=== PATIENT | female | born 1970 | race African-American/Black ===

== ENCOUNTER 2020-11-15 18:13 | Inpatient (IN) | payer MEDICARE, OTHER ==
[2020-11-15] MEDS ORDERED: ACETAMINOPHEN TAB 500 MG TAB PO STA (18:30)
--- NOTE | 2020-11-15 18:48 | ED ---
General Adult HPI - General Chief complaint: Shortness of Breath Stated complaint: RENEE Time Seen by Provider: 11/15/20 18:18 Source: RN/MD Mode of arrival: EMS Limitations: no limitations - History of Present Illness Initial comments: Baylee 50-year-old female with history of anoxic brain injury, status post trach and PEG who presents to the ER today via ambulance from half-way for evaluation of increased work of breathing and fever. - Related Data Home Medications Medication Instructions Recorded Confirmed Acetaminophen [Tylenol] 650 mg PEG/G-TUBE Q6H PRN 11/15/20 11/15/20 Bacitracin Ointment 500 Unit/Gm 1 applic TOPICAL HS 11/15/20 11/15/20 Docusate [Colace] 100 mg PEG/G-TUBE BID 11/15/20 11/15/20 Furosemide [Lasix] 20 mg PEG/G-TUBE DAILY 11/15/20 11/15/20 Heparin Sodium,Porcine [Heparin 5,000 unit SQ TID@0500,1300,2100 11/15/20 11/15/20 Sodium] Ipratropium-Albuterol Nebulize 3 ml INHALATION RT-Q6H 11/15/20 11/15/20 [Duoneb 0.5 mg-3 mg/3 ml Soln] Levofloxacin [Levaquin] 500 mg PEG/G-TUBE DAILY 11/15/20 11/15/20 Pro-Stat 15 ml PEG/G-TUBE BID 11/15/20 11/15/20 RX: Carvedilol [Coreg] 12.5 mg PEG/G-TUBE BID 11/15/20 11/15/20 RX: Famotidine 20 mg PEG/G-TUBE BID 11/15/20 11/15/20 RX: PHENobarbitaL [PHENobarbital] 64.8 mg PEG/G-TUBE 11/15/20 11/15/20 TID@0500,1300,2100 RX: bisacodyL [Bisacodyl] 10 mg RECTAL DAILY PRN 11/15/20 11/15/20 Refresh Plus Solution 0.5% 2 drop BOTH EYES TID@0500,1300,2100 11/15/20 11/15/20 Sennosides [Senna] 17.2 mg PEG/G-TUBE HS 11/15/20 11/15/20 Topiramate [Topamax] 100 mg PEG/G-TUBE BID 11/15/20 11/15/20 amLODIPine [Norvasc] 10 mg PEG/G-TUBE DAILY 11/15/20 11/15/20 clonazePAM [KlonoPIN] 1 mg PEG/G-TUBE TID@0500,1300,2100 11/15/20 11/15/20 hydrALAZINE HCL [Apresoline] 50 mg PEG/G-TUBE BID 11/15/20 11/15/20 levETIRAcetam [levETIRAcetam Oral 1,500 mg PEG/G-TUBE BID 11/15/20 11/15/20 Soln] Allergies Allergy/AdvReac Type Severity Reaction Status Date / Time No Known Allergies Allergy Verified 11/15/20 18:46 Review of Systems ROS Statement: Those systems with pertinent positive or pertinent negative responses have been documented in the HPI. ROS Other: All systems not noted in ROS Statement are negative. Past Medical History Past Medical History: Heart Failure, Hypertension Additional Past Medical History / Comment(s): Cardiac arrest, Anoxic brain injury, History of Any Multi-Drug Resistant Organisms: None Reported Additional Past Surgical History / Comment(s): trach Past Psychological History: No Psychological Hx Reported Smoking Status: Unknown if ever smoked Past Alcohol Use History: None Reported Past Drug Use History: None Reported General Exam - General Exam Comments Initial Comments: Physical Exam GENERAL: debilitated, bed bound, unresponsive at baseline HENT: No acute trauma PULMONARY: Tachypnea, thick secretions of trach CARDIOVASCULAR: Tachycardic ABDOMEN: PEG tube in place SKIN: Warm : Deferred NEUROLOGIC: Unresponsive, at baseline per EMS MUSCULOSKELETAL: Generalized atrophy PSYCHIATRIC: Unable to assess secondary to mental status Limitations: no limitations Course Vital Signs 11/15/20 11/15/20 11/15/20 18:16 20:27 20:45 Temperature 101.2 F H 98.9 F Pulse Rate 94 99 Respiratory 32 H 22 Rate Blood Pressure 154/104 167/110 O2 Sat by Pulse 98 96 Oximetry 11/15/20 22:00 Temperature 98.8 F Pulse Rate 93 Respiratory 23 Rate Blood Pressure 169/99 O2 Sat by Pulse 100 Oximetry Medical Decision Making - Medical Decision Making Patient was seen and evaluated history was obtained from EMS Patient is febrile tachycardic with increased secretions from the trach Septic workup was initiated Excedrin respiratory therapy at bedside for deep suctioning Workup is relatively unremarkable patient has influenza and COVID negative chest x-ray shows no signs of pneumonia, patient's fever broke prior to Tylenol administration Suspect the patient was hyperthermic secondary to work of breathing due to mucus plugging and has improved after deep suctioning however they think the patient may require further deep suctioning and possible brought therefore will be admitted for further evaluation Patient care was discussed with Dr. Acharya who accepts the admission - Lab Data Result diagrams: 11/15/20 18:50 11/15/20 18:50 Lab Results 11/15/20 11/15/20 11/15/20 Range/Units 18:50 18:50 18:50 WBC 10.2 (3.8-10.6) k/uL RBC 4.12 (3.80-5.40) m/uL Hgb 11.1 L (11.4-16.0) gm/dL Hct 33.4 L (34.0-46.0) % MCV 81.2 (80.0-100.0) fL MCH 26.9 (25.0-35.0) pg MCHC 33.1 (31.0-37.0) g/dL RDW 15.9 H (11.5-15.5) % Plt Count 253 (150-450) k/uL MPV 7.7 Neutrophils % 71 % Lymphocytes % 17 % Monocytes % 8 % Eosinophils % 2 % Basophils % 0 % Neutrophils # 7.3 (1.3-7.7) k/uL Lymphocytes # 1.7 (1.0-4.8) k/uL Monocytes # 0.8 (0-1.0) k/uL Eosinophils # 0.3 (0-0.7) k/uL Basophils # 0.0 (0-0.2) k/uL PT 10.3 (9.0-12.0) sec INR 1.0 (<1.2) APTT 22.0 (22.0-30.0) sec Sodium (137-145) mmol/L Potassium (3.5-5.1) mmol/L Chloride (98-107) mmol/L Carbon Dioxide (22-30) mmol/L Anion Gap mmol/L BUN (7-17) mg/dL Creatinine (0.52-1.04) mg/dL Est GFR (CKD-EPI)AfAm (>60 ml/min/1.73 sqM) Est GFR (CKD-EPI)NonAf (>60 ml/min/1.73 sqM) Glucose (74-99) mg/dL Plasma Lactic Acid Brenden (0.7-2.0) mmol/L Calcium (8.4-10.2) mg/dL Total Bilirubin (0.2-1.3) mg/dL AST (14-36) U/L ALT (4-34) U/L Alkaline Phosphatase (38-126) U/L Total Protein (6.3-8.2) g/dL Albumin (3.5-5.0) g/dL Urine Color Yellow Urine Appearance Clear (Clear) Urine pH 6.0 (5.0-8.0) Ur Specific [place] 1.031 (1.001-1.035) Urine Protein Trace H (Negative) Urine Glucose (UA) Negative (Negative) Urine Ketones Negative (Negative) Urine Blood Negative (Negative) Urine Nitrite Negative (Negative) Urine Bilirubin Negative (Negative) Urine Urobilinogen 2.0 (<2.0) mg/dL Ur Leukocyte Esterase Negative (Negative) Coronavirus (PCR) (Not Detectd) Influenza Type A RNA (Not Detectd) Influenza Type B (PCR) (Not Detectd) 11/15/20 11/15/20 11/15/20 Range/Units 18:50 18:50 18:50 WBC (3.8-10.6) k/uL RBC (3.80-5.40) m/uL Hgb (11.4-16.0) gm/dL Hct (34.0-46.0) % MCV (80.0-100.0) fL MCH (25.0-35.0) pg MCHC (31.0-37.0) g/dL RDW (11.5-15.5) % Plt Count (150-450) k/uL MPV Neutrophils % % Lymphocytes % % Monocytes % % Eosinophils % % Basophils % % Neutrophils # (1.3-7.7) k/uL Lymphocytes # (1.0-4.8) k/uL Monocytes # (0-1.0) k/uL Eosinophils # (0-0.7) k/uL Basophils # (0-0.2) k/uL PT (9.0-12.0) sec INR (<1.2) APTT (22.0-30.0) sec Sodium 136 L (137-145) mmol/L Potassium 3.8 (3.5-5.1) mmol/L Chloride 103 (98-107) mmol/L Carbon Dioxide 23 (22-30) mmol/L Anion Gap 10 mmol/L BUN 21 H (7-17) mg/dL Creatinine 0.65 (0.52-1.04) mg/dL Est GFR (CKD-EPI)AfAm >90 (>60 ml/min/1.73 sqM) Est GFR (CKD-EPI)NonAf >90 (>60 ml/min/1.73 sqM) Glucose 109 H (74-99) mg/dL Plasma Lactic Acid Brenden 0.8 (0.7-2.0) mmol/L Calcium 9.2 (8.4-10.2) mg/dL Total Bilirubin 0.3 (0.2-1.3) mg/dL AST 44 H (14-36) U/L ALT 62 H (4-34) U/L Alkaline Phosphatase 124 (38-126) U/L Total Protein 6.7 (6.3-8.2) g/dL Albumin 3.5 (3.5-5.0) g/dL Urine Color Urine Appearance (Clear) Urine pH (5.0-8.0) Ur Specific [place] (1.001-1.035) Urine Protein (Negative) Urine Glucose (UA) (Negative) Urine Ketones (Negative) Urine Blood (Negative) Urine Nitrite (Negative) Urine Bilirubin (Negative) Urine Urobilinogen (<2.0) mg/dL Ur Leukocyte Esterase (Negative) Coronavirus (PCR) Not Detected (Not Detectd) Influenza Type A RNA (Not Detectd) Influenza Type B (PCR) (Not Detectd) 11/15/20 Range/Units 20:58 WBC (3.8-10.6) k/uL RBC (3.80-5.40) m/uL Hgb (11.4-16.0) gm/dL Hct (34.0-46.0) % MCV (80.0-100.0) fL MCH (25.0-35.0) pg MCHC (31.0-37.0) g/dL RDW (11.5-15.5) % Plt Count (150-450) k/uL MPV Neutrophils % % Lymphocytes % % Monocytes % % Eosinophils % % Basophils % % Neutrophils # (1.3-7.7) k/uL Lymphocytes # (1.0-4.8) k/uL Monocytes # (0-1.0) k/uL Eosinophils # (0-0.7) k/uL Basophils # (0-0.2) k/uL PT (9.0-12.0) sec INR (<1.2) APTT (22.0-30.0) sec Sodium (137-145) mmol/L Potassium (3.5-5.1) mmol/L Chloride (98-107) mmol/L Carbon Dioxide (22-30) mmol/L Anion Gap mmol/L BUN (7-17) mg/dL Creatinine (0.52-1.04) mg/dL Est GFR (CKD-EPI)AfAm (>60 ml/min/1.73 sqM) Est GFR (CKD-EPI)NonAf (>60 ml/min/1.73 sqM) Glucose (74-99) mg/dL Plasma Lactic Acid Brenden (0.7-2.0) mmol/L Calcium (8.4-10.2) mg/dL Total Bilirubin (0.2-1.3) mg/dL AST (14-36) U/L ALT (4-34) U/L Alkaline Phosphatase (38-126) U/L Total Protein (6.3-8.2) g/dL Albumin (3.5-5.0) g/dL Urine Color Urine Appearance (Clear) Urine pH (5.0-8.0) Ur Specific [place] (1.001-1.035) Urine Protein (Negative) Urine Glucose (UA) (Negative) Urine Ketones (Negative) Urine Blood (Negative) Urine Nitrite (Negative) Urine Bilirubin (Negative) Urine Urobilinogen (<2.0) mg/dL Ur Leukocyte Esterase (Negative) Coronavirus (PCR) (Not Detectd) Influenza Type A RNA Not Detected (Not Detectd) Influenza Type B (PCR) Not Detected (Not Detectd) Disposition Clinical Impression: Acute airway obstruction Disposition: ADMITTED IP TO THIS HOSP
[2020-11-15 19:16] LABS: Basophils % (A) 0 %; Eosinophils # (A) 0.3 k/uL (0-0.7); Eosinophils % (A) 2 %; HCT 33.4 % (34.0-46.0); HGB 11.1 gm/dL (11.4-16.0); Lymphocytes # (A) 1.7 k/uL (1.0-4.8); Lymphocytes % (A) 17 %; MCH 26.9 pg (25.0-35.0); MCHC 33.1 g/dL (31.0-37.0); MCV 81.2 fL (80.0-100.0); Mean Platelet Volume 7.7; Monocytes # (A) 0.8 k/uL (0-1.0); Monocytes % (A) 8 %; Neutrophils # (A) 7.3 k/uL (1.3-7.7); Neutrophils % (A) 71 %; Platelet Count 253 k/uL (150-450); RBC 4.12 m/uL (3.80-5.40); RDW 15.9 % (11.5-15.5); WBC 10.2 k/uL (3.8-10.6)
[2020-11-15 19:18] LABS: Appearance,Urine Clear (Clear); Bilirubin,Urine Negative (Negative); Color,Urine Yellow; Glucose,Urine (UA) Negative (Negative); Ketones,Urine Negative (Negative); Protein,Urine Trace (Negative); Specific Gravity,Urine 1.031 (1.001-1.035)
[2020-11-15 19:19] LABS: Blood,Urine Negative (Negative); Leukocyte Esterase,Urine Negative (Negative); Nitrite,Urine Negative (Negative)
[2020-11-15 19:27] LABS: ALT 62 U/L (4-34); AST 44 U/L (14-36); African American GFR (CKD) >90 (>60 ml/min/1.73 sqM); Albumin 3.5 g/dL (3.5-5.0); Alkaline Phosphatase 124 U/L (38-126); Anion Gap 10 mmol/L; Blood Urea Nitrogen 21 mg/dL (7-17); Calcium 9.2 mg/dL (8.4-10.2); Carbon Dioxide 23 mmol/L (22-30); Chloride 103 mmol/L (98-107); Glucose 109 mg/dL (74-99); Non-African American GFR(CKD) >90 (>60 ml/min/1.73 sqM); Potassium 3.8 mmol/L (3.5-5.1); Sodium 136 mmol/L (137-145); Total Bilirubin 0.3 mg/dL (0.2-1.3); Total Protein 6.7 g/dL (6.3-8.2)
--- NOTE | 2020-11-15 19:28 | XR ---
EXAMINATION TYPE: XR chest 1V portable DATE OF EXAM: 11/15/2020 COMPARISON: NONE HISTORY: Fever TECHNIQUE: Single view FINDINGS: Heart and mediastinum are normal. Lungs are clear of infiltrate. There is no pleural effusi on. There is tracheostomy tube. There are chest leads. IMPRESSION: No active cardiopulmonary disease. Normal heart.
[2020-11-15 19:42] LABS: Prothrombin Time 10.3 sec (9.0-12.0)
[2020-11-15] MEDS: SODIUM CHLORIDE 0.9% 500 ML 500 ML IV SCH ×2 (20:00→20:41)
[2020-11-15] MEDS ORDERED: NALOXONE 0.4 MG/ML 1 ML VIAL IV PRN (22:37)
[2020-11-15] MEDS ORDERED: ACETAMINOPHEN TAB 325 MG TAB PO PRN (23:36)
[2020-11-16] MEDS: SODIUM CHLORIDE 0.9% 1,000 ML IV SCH ×2 (00:08→12:09)
[2020-11-16] MEDS ORDERED: bisacodyL 10 MG SUPP RECTAL PRN (06:20)
[2020-11-16] MEDS: IPRATROPIUM-ALBUTEROL 3 ML NEB INHALATION SCH ×3 (08:24→19:15)
[2020-11-16] MEDS ORDERED: LEVOFLOXACIN 500 MG TAB PEG/G-TUBE SCH (09:00)
[2020-11-16] MEDS ORDERED: PROTEIN SUPPLEMENT PEG/G-TUBE SCH (09:00)
[2020-11-16] MEDS: TOPIRAMATE 100 MG TAB PEG/G-TUBE SCH ×2 (09:08→20:44)
[2020-11-16] MEDS: FUROSEMIDE 20 MG TAB PEG/G-TUBE SCH (09:08)
[2020-11-16] MEDS: FAMOTIDINE 20 MG TAB PEG/G-TUBE SCH ×2 (09:08→20:44)
[2020-11-16] MEDS: carvediloL 12.5 MG TAB PEG/G-TUBE SCH ×2 (09:08→16:11)
[2020-11-16] MEDS: levETIRAcetam ORAL SOLN 500 MG/5 ML CUP PEG/G-TUBE SCH ×2 (09:08→20:44)
[2020-11-16] MEDS: hydrALAZINE HCL 50 MG TAB PEG/G-TUBE SCH ×2 (09:08→20:44)
[2020-11-16] MEDS: amLODIPine 10 MG TAB PEG/G-TUBE SCH (09:08)
[2020-11-16] MEDS ORDERED: LORazepam 2 MG/ML INJ IV STA ×2 (10:45→14:25)
[2020-11-16] MEDS ORDERED: VANCOMYCIN IV PER PHARMACY 1 EACH MISC MISCELLANE PRN (10:50)
[2020-11-16 11:58] LABS: Glucose,Whole Blood 106 mg/dL (75-99)
[2020-11-16] MEDS: VANCOMYCIN 1,750 MG in SODIUM CHLORIDE 0.9% 500 ML 500 ML IVPB SCH ×2 (12:01→23:44)
[2020-11-16] MEDS: HEPARIN SODIUM,PORCINE 5,000 UNIT/ML 1 ML VIAL SQ SCH ×2 (13:55→20:44)
[2020-11-16] MEDS: clonazePAM 1 MG TAB PEG/G-TUBE SCH ×2 (13:55→20:44)
[2020-11-16] MEDS: ARTIFICIAL TEARS-HYPROMELLOSE DROPS 15 ML BTL BOTH EYES SCH ×2 (13:56→20:43)
[2020-11-16] MEDS ORDERED: PHENYTOIN SODIUM INJ 1,000 MG in SODIUM CHLORIDE 0.9% 100 ML IVPB STA (15:07)
[2020-11-16 16:05] LABS: Appearance,Urine Cloudy (Clear); Bacteria,Urine Rare /hpf; Bilirubin,Urine Negative (Negative); Blood,Urine Small (Negative); Color,Urine Yellow; Glucose,Urine (UA) Negative (Negative); Ketones,Urine Negative (Negative); Leukocyte Esterase,Urine Moderate (Negative); Mucus,Urine Occasional /hpf; Nitrite,Urine Negative (Negative); Protein,Urine 1+ (Negative); RBC,Urine 173 /hpf (0-5); Specific Gravity,Urine 1.033 (1.001-1.035); Squamous Epithelial Cell,Urine <1 /hpf (0-4); WBC,Urine 47 /hpf (0-5)
--- NOTE | 2020-11-16 16:05 | P.CNPUL ---
History of Present Illness Consult date: 11/16/20 Requesting physician: Flavio Acharya Reason for consult: other (Excessive tracheal secretions from tracheostomy.) Chief complaint: Shortness of breath and fever. History of present illness: This is a 50-year-old female, -Mexican female, presented to the emergency room yesterday from [facility]. Patient was brought in mostly because of increased shortness of breath, fever, and excessive tracheal secretions noted from her tracheostomy. Chest x-ray showed no evidence of pneumonia, patient had history of multiple types of infections including MRSA infections, and I was asked to see her on consultation. Apparently the patient had history of cardiac arrest back on September 29 2020, and she presented at the time to [facility] unresponsive, CPR was initiated, received multiple rounds of CPR and 2 doses of epinephrine. Patient eventually developed severe anoxic brain injury. Patient was treated with the hypothermia protocol. And she was on mechanical ventilation for quite some time. Patient was eventually a failure to wean, and underwent tracheostomy and PEG tube placement. Eventually she was transferred to [facility] on multiple medications including seizure medications, yesterday, the patient was noted to have significant secretions from her tracheostomy, and she was constantly coughing and requiring suctioning, she was also noted to have low-grade fever, chest x-ray showed no evidence of infiltrate. Patient was admitted and this consult was initiated. No information could be obtained from the patient and no family members around. Information was obtained from records from the [facility] facility where the patient was Review of Systems ROS unobtainable: due to mental status Past Medical History Past Medical History: Heart Failure, Hypertension Additional Past Medical History / Comment(s): Cardiac arrest, Anoxic brain injury, History of Any Multi-Drug Resistant Organisms: None Reported Additional Past Surgical History / Comment(s): trach Past Anesthesia/Blood Transfusion Reactions: No Reported Reaction Past Psychological History: No Psychological Hx Reported Smoking Status: Unknown if ever smoked Past Alcohol Use History: None Reported Past Drug Use History: None Reported Medications and Allergies Home Medications Medication Instructions Recorded Confirmed Type Acetaminophen [Tylenol] 650 mg PEG/G-TUBE Q6H PRN 11/15/20 11/15/20 History Bacitracin Ointment 500 Unit/Gm 1 applic TOPICAL HS 11/15/20 11/15/20 History Carvedilol [Coreg] 12.5 mg PEG/G-TUBE BID 11/15/20 11/15/20 History Docusate [Colace] 100 mg PEG/G-TUBE BID 11/15/20 11/15/20 History Famotidine 20 mg PEG/G-TUBE BID 11/15/20 11/15/20 History Furosemide [Lasix] 20 mg PEG/G-TUBE DAILY 11/15/20 11/15/20 History Heparin Sodium,Porcine [Heparin 5,000 unit SQ TID@0500,1300,2100 11/15/20 11/15/20 History Sodium] Ipratropium-Albuterol Nebulize 3 ml INHALATION RT-Q6H 11/15/20 11/15/20 History [Duoneb 0.5 mg-3 mg/3 ml Soln] Levofloxacin [Levaquin] 500 mg PEG/G-TUBE DAILY 11/15/20 11/15/20 History PHENobarbitaL [PHENobarbital] 64.8 mg PEG/G-TUBE 11/15/20 11/15/20 History TID@0500,1300,2100 Pro-Stat 15 ml PEG/G-TUBE BID 11/15/20 11/15/20 History Refresh Plus Solution 0.5% 2 drop BOTH EYES TID@0500,1300,2100 11/15/20 11/15/20 History Sennosides [Senna] 17.2 mg PEG/G-TUBE HS 11/15/20 11/15/20 History Topiramate [Topamax] 100 mg PEG/G-TUBE BID 11/15/20 11/15/20 History amLODIPine [Norvasc] 10 mg PEG/G-TUBE DAILY 11/15/20 11/15/20 History bisacodyL [Bisacodyl] 10 mg RECTAL DAILY PRN 11/15/20 11/15/20 History clonazePAM [KlonoPIN] 1 mg PEG/G-TUBE TID@0500,1300,2100 11/15/20 11/15/20 History hydrALAZINE HCL [Apresoline] 50 mg PEG/G-TUBE BID 11/15/20 11/15/20 History levETIRAcetam [levETIRAcetam Oral 1,500 mg PEG/G-TUBE BID 11/15/20 11/15/20 History Soln] Allergies Allergy/AdvReac Type Severity Reaction Status Date / Time No Known Allergies Allergy Verified 11/15/20 18:46 Physical Exam Vitals: Vital Signs Temp Pulse Pulse Resp BP BP Pulse Ox 11/16/20 14:00 98.9 F 94 20 140/85 100 11/16/20 12:22 110 H 11/16/20 12:05 108 H 11/16/20 08:37 113 H 11/16/20 08:25 110 H 100 11/16/20 08:00 99.9 F H 109 H 22 141/83 100 11/15/20 23:35 99.7 F H 101 H 143/68 100 11/15/20 22:00 98.8 F 93 23 169/99 100 11/15/20 20:45 98.9 F 11/15/20 20:27 99 22 167/110 96 11/15/20 18:16 101.2 F H 94 32 H 154/104 98 Intake and Output 11/16/20 11/16/20 11/16/20 06:59 14:59 22:59 Output Total 400 Balance -400 Output: Urine 400 Other: Voiding Method Indwelling Catheter Weight Physical Exam: Revealed a 50-year-old -Mexican female, unresponsive to any stimuli, on T piece FiO2 at 40%, Head: Atraumatic, normocephalic. HEENT:[Neck is supple.] [No neck masses.] [No thyromegaly.] [No JVD.] Tracheostomy seems to be intact. Chest: [Symmetrical chest expansion, crackles and rhonchi noted bilaterally. Cardiac Exam: [Normal S1 and S2, no S3 gallop, no murmur.] Abdomen: [Obese, Soft, nontender, no megaly, no rebound, no guarding, normal bowel sounds. PEG tube is noted.] Extremities: [No clubbing, trace of bipedal edema, no cyanosis.] Minutes pulses bilaterally. Neurological Exam: Patient is unresponsive to any stimuli. Noted to have intermittent jerks, felt to be either myoclonic jerks or seizures, responded to Ativan 1 mg IV push 1. Psychiatric: Could not be assessed. Results - Laboratory Findings CBC and BMP: 11/15/20 18:50 11/15/20 18:50 PT/INR, D-dimer PT 10.3 sec (9.0-12.0) 11/15/20 18:50 INR 1.0 (<1.2) 11/15/20 18:50 Abnormal lab findings: Abnormal Labs 11/15/20 11/15/20 11/15/20 18:50 18:50 18:50 Hgb 11.1 L Hct 33.4 L RDW 15.9 H Sodium 136 L BUN 21 H Glucose 109 H POC Glucose (mg/dL) AST 44 H ALT 62 H Urine Protein Trace H 11/16/20 11:56 Hgb Hct RDW Sodium BUN Glucose POC Glucose (mg/dL) 106 H AST ALT Urine Protein - Diagnostic Findings Chest x-ray: image reviewed (No evidence of pneumonia or active cardiopulmonary disease noted.) Assessment and Plan Assessment: Impression: Acute tracheobronchitis, doubt pneumonia History of severe anoxic brain injury secondary to cardiac arrest back on September 292020. Seizure disorder secondary to anoxic brain injury. Patient is maintained on Keppra. Possible myoclonic jerks or seizure activity, hence I recommended neurologic evaluation on this patient. In the meantime Ativan was given 1 patient is also maintained on lorazepam, and she is on Keppra. History of cardiac arrest Benign essential hypertension. History of PEG tube placement for nutritional support. Recommendation: Continue present supportive care measures. Continue tracheostomy care. Empiric antibiotics, will utilize vancomycin and Levaquin empirically for now until sputum cultures are available. Continue bronchodilators. Continue nutritional support via PEG. Continue GI and DVT prophylaxis. Neurology to see in consultation. Infectious disease to see her on consultation specially with her history of MRSA infection and possible pneumonia. Prognosis is extremely poor and guarded. We'll continue to follow. Time with Patient: Greater than 30
--- NOTE | 2020-11-16 19:00 | P.HPIM ---
History of Present Illness H&P Date: 11/16/20 Chief Complaint: Fever History of presenting complaint: This is a 50-year-old patient, who is a resident of [facility] being followed by Dr. Packer. Patient herself is nonverbal. History from the transfer notes and per the nurses obtained. patient had a cardiac arrest and was transferred to [facility]. From there she was [facility] and from there she was transferred to [facility]. Patient has a tracheostomy tube and a PEG tube. Chronic stable medical conditions include anoxic brain injury, hypertension, seizure disorder, GERD. History of MRSA. Maybe at her baseline she opens her eyes. EMS was called out as patient was noted to have a fever. Transferred to the hospital. Patient normally has a trach: Collar at 21%. Patient also noted to have some jerking movements. More so off the abdomen. Some around the mouth. Review of systems: Patient is not verbal and skin without pain review of systems Past medical history to include: Anoxic brain injury, hypertension, seizure disorder, GERD, MRSA infection, PEG tube for feeding, tracheostomy tube Social history: . Nonverbal. Currently at [facility] on. Tracheostomy tube PEG tube. Family history: Patient cannot tell Physical examination: VITAL SIGNS: 101.2, 94, 32, 1 54 x 1 04, 98% room air GENERAL: BMI 33.5, laying in bed. EYES: Pupils equal. Conjunctiva normal. HEENT: External appearance of nose and ears normal, oral cavity. Dry. NECK: JVD not raised; tracheostomy in place with some secretions. HEART: First and second heart sounds are normal; no edema. LUNGS: Respiratory rate increased, decreased breath sounds . ABDOMEN: Soft, nontender, liver spleen not palpable, no masses palpable. PSYCH: Unable to assessl. NEUROLOGICAL: [Cranial nerves grossly intact; no facial asymmetry, some response to pain LYMPHATICS: No lymph nodes palpable in the axilla and neck INVESTIGATIONS, reviewed in the clinical context: WBC 10.2 hemoglobin 11.1 platelets 253 potassium 3.8 creatinine 0.65 UA positive for leukoesterase, WBC Coronavirus, influenza type A, influenza type B: All not detected EKG tracing personally reviewed by me-no sinus rhythm Chest x-ray film personally reviewed by me-tracheostomy tube. No recent infiltrates Assessment and plan: -This is a patient presents with a septic picture. X-rays clear. Has a positive urine. Also possible tracheobronchitis. -Acute tracheal bronchitis. Placed on Levaquin -Acute UTI with cystitis, and Levaquin -Anoxic brain injury, chronic follow clinically -Essential hypertension continue with amlodipine, Coreg, hydralazine -Seizure disorder continue with Keppra, Topamax, phenobarbital. Patient with having some jerking movements. Consult neurology for their opinion. -Chronic tracheostomy and PEG tube 2 views for feeding. Continue with Levaquin. IV fluids. Other medications resumed. PEG tube feeding to be resumed. Prognosis guarded Past Medical History Past Medical History: Heart Failure, Hypertension Additional Past Medical History / Comment(s): Cardiac arrest, Anoxic brain injury, History of Any Multi-Drug Resistant Organisms: None Reported Additional Past Surgical History / Comment(s): trach Past Anesthesia/Blood Transfusion Reactions: No Reported Reaction Past Psychological History: No Psychological Hx Reported Smoking Status: Unknown if ever smoked Past Alcohol Use History: None Reported Past Drug Use History: None Reported Medications and Allergies Home Medications Medication Instructions Recorded Confirmed Type Acetaminophen [Tylenol] 650 mg PEG/G-TUBE Q6H PRN 11/15/20 11/15/20 History Bacitracin Ointment 500 Unit/Gm 1 applic TOPICAL HS 11/15/20 11/15/20 History Carvedilol [Coreg] 12.5 mg PEG/G-TUBE BID 11/15/20 11/15/20 History Docusate [Colace] 100 mg PEG/G-TUBE BID 11/15/20 11/15/20 History Famotidine 20 mg PEG/G-TUBE BID 11/15/20 11/15/20 History Furosemide [Lasix] 20 mg PEG/G-TUBE DAILY 11/15/20 11/15/20 History Heparin Sodium,Porcine [Heparin 5,000 unit SQ TID@0500,1300,2100 11/15/20 11/15/20 History Sodium] Ipratropium-Albuterol Nebulize 3 ml INHALATION RT-Q6H 11/15/20 11/15/20 History [Duoneb 0.5 mg-3 mg/3 ml Soln] Levofloxacin [Levaquin] 500 mg PEG/G-TUBE DAILY 11/15/20 11/15/20 History PHENobarbitaL [PHENobarbital] 64.8 mg PEG/G-TUBE 11/15/20 11/15/20 History TID@0500,1300,2100 Pro-Stat 15 ml PEG/G-TUBE BID 11/15/20 11/15/20 History Refresh Plus Solution 0.5% 2 drop BOTH EYES TID@0500,1300,2100 11/15/20 11/15/20 History Sennosides [Senna] 17.2 mg PEG/G-TUBE HS 11/15/20 11/15/20 History Topiramate [Topamax] 100 mg PEG/G-TUBE BID 11/15/20 11/15/20 History amLODIPine [Norvasc] 10 mg PEG/G-TUBE DAILY 11/15/20 11/15/20 History bisacodyL [Bisacodyl] 10 mg RECTAL DAILY PRN 11/15/20 11/15/20 History clonazePAM [KlonoPIN] 1 mg PEG/G-TUBE TID@0500,1300,2100 11/15/20 11/15/20 History hydrALAZINE HCL [Apresoline] 50 mg PEG/G-TUBE BID 11/15/20 11/15/20 History levETIRAcetam [levETIRAcetam Oral 1,500 mg PEG/G-TUBE BID 11/15/20 11/15/20 History Soln] Allergies Allergy/AdvReac Type Severity Reaction Status Date / Time No Known Allergies Allergy Verified 11/15/20 18:46 Physical Exam Vitals: Vital Signs Temp Pulse Pulse Resp BP BP Pulse Ox 11/16/20 12:22 110 H 11/16/20 12:05 108 H 11/16/20 08:37 113 H 11/16/20 08:25 110 H 100 11/16/20 08:00 99.9 F H 109 H 22 141/83 100 11/15/20 23:35 99.7 F H 101 H 143/68 100 11/15/20 22:00 98.8 F 93 23 169/99 100 11/15/20 20:45 98.9 F 11/15/20 20:27 99 22 167/110 96 11/15/20 18:16 101.2 F H 94 32 H 154/104 98 Intake and Output 11/15/20 11/16/20 11/16/20 21:59 06:59 14:59 Output Total Balance Output: Urine Other: Voiding Method Indwelling Catheter Weight Results CBC & Chem 7: 11/15/20 18:50 11/15/20 18:50 Labs: Abnormal Lab Results - Last 24 Hours (Table) 11/15/20 11/15/20 11/15/20 Range/Units 18:50 18:50 18:50 Hgb 11.1 L (11.4-16.0) gm/dL Hct 33.4 L (34.0-46.0) % RDW 15.9 H (11.5-15.5) % Sodium 136 L (137-145) mmol/L BUN 21 H (7-17) mg/dL Glucose 109 H (74-99) mg/dL POC Glucose (mg/dL) (75-99) mg/dL AST 44 H (14-36) U/L ALT 62 H (4-34) U/L Urine Protein Trace H (Negative) 11/16/20 Range/Units 11:56 Hgb (11.4-16.0) gm/dL Hct (34.0-46.0) % RDW (11.5-15.5) % Sodium (137-145) mmol/L BUN (7-17) mg/dL Glucose (74-99) mg/dL POC Glucose (mg/dL) 106 H (75-99) mg/dL AST (14-36) U/L ALT (4-34) U/L Urine Protein (Negative) Thrombosis Risk Factor Assmnt - Choose All That Apply Any of the Below Risk Factors Present?: Yes Each Factor Represents 1 point: Medical pt on bed rest Other Risk Factors: Yes Each Risk Factor Represents 2 Points: Patient confined to bed Thrombosis Risk Factor Assessment Total Risk Factor Score: 3 Thrombosis Risk Factor Assessment Level: Moderate Risk
[2020-11-16 20:14] LABS: Glucose,Whole Blood 122 mg/dL (75-99)
--- NOTE | 2020-11-16 20:35 | P.CNNES ---
History of Present Illness Consult date: 11/16/20 History of Present Illness: The patient is a 50-year-old female who is seen in neurologic consultation on November 16, 2020, via teleneurology. History is obtained from the chart and from the at the bedside. The patient reportedly has a history of cardiac arrest in September of this year. As far as I can tell, the patient was in [facility]. She reportedly suffered brain damage from the cardiac arrest. The patient's reports that according to the CT scan, there was some brain damage and loss of some function. He does not believe the patient had an MRI of her brain. Apparently she has a history of seizures likely related to the cerebral anoxia. She is on several seizure medications. More recently, the patient has been a resident of [facility]. She was able to be weaned off at the respirator however still requires oxygen support via tracheostomy. At her baseline, the patient does open her eyes. She is nonverbal. She does not move her extremities. She does not withdraw from noxious stimulation. The patient was transferred to the hospital because of fever. According to the history and physical, there is concern for tracheobronchitis and/or sepsis. The patient's urine is positive for infection. Since her admission, there have been episodes of jerking movements involving the lips, abdomen and upper extremities. Past Medical History Past Medical History: Heart Failure, Hypertension Additional Past Medical History / Comment(s): Cardiac arrest, Anoxic brain inj ury, History of Any Multi-Drug Resistant Organisms: None Reported Additional Past Surgical History / Comment(s): trach Past Anesthesia/Blood Transfusion Reactions: No Reported Reaction Past Psychological History: No Psychological Hx Reported Smoking Status: Unknown if ever smoked Past Alcohol Use History: None Reported Past Drug Use History: None Reported Medications and Allergies Home Medications Medication Instructions Recorded Confirmed Type Acetaminophen [Tylenol] 650 mg PEG/G-TUBE Q6H PRN 11/15/20 11/15/20 History Bacitracin Ointment 500 Unit/Gm 1 applic TOPICAL HS 11/15/20 11/15/20 History Carvedilol [Coreg] 12.5 mg PEG/G-TUBE BID 11/15/20 11/15/20 History Docusate [Colace] 100 mg PEG/G-TUBE BID 11/15/20 11/15/20 History Famotidine 20 mg PEG/G-TUBE BID 11/15/20 11/15/20 History Furosemide [Lasix] 20 mg PEG/G-TUBE DAILY 11/15/20 11/15/20 History Heparin Sodium,Porcine [Heparin 5,000 unit SQ TID@0500,1300,2100 11/15/20 11/15/20 History Sodium] Ipratropium-Albuterol Nebulize 3 ml INHALATION RT-Q6H 11/15/20 11/15/20 History [Duoneb 0.5 mg-3 mg/3 ml Soln] Levofloxacin [Levaquin] 500 mg PEG/G-TUBE DAILY 11/15/20 11/15/20 History PHENobarbitaL [PHENobarbital] 64.8 mg PEG/G-TUBE 11/15/20 11/15/20 History TID@0500,1300,2100 Pro-Stat 15 ml PEG/G-TUBE BID 11/15/20 11/15/20 History Refresh Plus Solution 0.5% 2 drop BOTH EYES TID@0500,1300,2100 11/15/20 11/15/20 History Sennosides [Senna] 17.2 mg PEG/G-TUBE HS 11/15/20 11/15/20 History Topiramate [Topamax] 100 mg PEG/G-TUBE BID 11/15/20 11/15/20 History amLODIPine [Norvasc] 10 mg PEG/G-TUBE DAILY 11/15/20 11/15/20 History bisacodyL [Bisacodyl] 10 mg RECTAL DAILY PRN 11/15/20 11/15/20 History clonazePAM [KlonoPIN] 1 mg PEG/G-TUBE TID@0500,1300,2100 11/15/20 11/15/20 History hydrALAZINE HCL [Apresoline] 50 mg PEG/G-TUBE BID 11/15/20 11/15/20 History levETIRAcetam [levETIRAcetam Oral 1,500 mg PEG/G-TUBE BID 11/15/20 11/15/20 History Soln] Allergies Allergy/AdvReac Type Severity Reaction Status Date / Time No Known Allergies Allergy Verified 11/15/20 18:46 Physical Examination - Vital Signs Vital Signs: Vital Signs Temp Pulse Pulse Resp BP BP Pulse Ox 11/16/20 14:00 98.9 F 94 20 140/85 100 11/16/20 12:22 110 H 11/16/20 12:05 108 H 11/16/20 08:37 113 H 11/16/20 08:25 110 H 100 11/16/20 08:00 99.9 F H 109 H 22 141/83 100 11/15/20 23:35 99.7 F H 101 H 143/68 100 11/15/20 22:00 98.8 F 93 23 169/99 100 11/15/20 20:45 98.9 F 11/15/20 20:27 99 22 167/110 96 11/15/20 18:16 101.2 F H 94 32 H 154/104 98 Intake and Output 11/16/20 11/16/20 11/16/20 06:59 14:59 22:59 Output Total 400 Balance -400 Output: Urine 400 Other: Voiding Method Indwelling Catheter Weight Gen.: The patient is reclining in the bed. She is obese. She is in no acute distress. Approximately 20 minutes prior to our examination, the patient received 0.5 mg of Ativan IV push because of jerking movements. HEENT: Head is atraumatic, normocephalic. Fundus not visualized. There is no scleral icterus. Mucous membranes are moist. The patient is reportedly having difficulty with excessive secretions. Neck: Carotids are difficult to auscultate secondary to lung sounds Heart: Difficult to auscultate because of lung sounds Lungs: Diffuse rhonchi and coughing Neurological examination Mental status: Patient does open her eyes to sternal rub. There is no visual tracking. There is no withdrawal from noxious stimulation. The patient is nonverbal. She follows no commands. Cranial nerves: Pupils are equal at 5 mm and reactive. Eyes are midline initially upon passive opening of the eyelids however, the eyes then begin to rove. When jerking movements begin, there appears to be horizontal slow moving nystagmus. There is no obvious facial asymmetry. Motor: There is no volitional movement. Part way through the neurological examination, the patient begins to have my oclonic jerking movements involving her face/lips, upper extremities, abdomen and lower extremities. These abnormal movements last for less than 5 minutes. Sensation: There is no withdrawal from noxious stimulation. Deep tendon reflexes: Absent throughout Results - Laboratory Findings CBC and BMP: 11/15/20 18:50 11/15/20 18:50 Abnormal Lab Findings: Abnormal Labs 11/15/20 11/15/20 11/15/20 18:50 18:50 18:50 Hgb 11.1 L Hct 33.4 L RDW 15.9 H Sodium 136 L BUN 21 H Glucose 109 H POC Glucose (mg/dL) AST 44 H ALT 62 H Urine Protein Trace H 11/16/20 11:56 Hgb Hct RDW Sodium BUN Glucose POC Glucose (mg/dL) 106 H AST ALT Urine Protein Assessment and Plan Assessment: 1. 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 Based on the fact the patient is already receiving 3 antiepileptic medicati ons, it is likely that she has had myoclonic seizures previously Plan: 1. Will add phenytoin 1000 mg bolus, followed by 300 mg daily 2. Briefly discussed hospice with the patient's 3. Your treatment of infection Time with Patient: Greater than 30 (spent 40 minutes with patient via teleneurology)
[2020-11-16] MEDS: SENNOSIDES 8.6 MG TAB PEG/G-TUBE SCH (20:44)
[2020-11-16] MEDS: BACITRACIN ZINC 500 UNIT/GM OINT 28.4 GM TUBE TOPICAL SCH (20:45)
[2020-11-16] MEDS: CEFEPIME 2 GM in SODIUM CHLORIDE 0.9% 100 ML IVPB SCH (23:44)
[2020-11-16] MEDS: PHENYTOIN SODIUM INJ 50 MG/ML 2 ML VIAL IVP SCH (23:47)
[2020-11-17] MEDS: SODIUM CHLORIDE 0.9% 1,000 ML IV SCH ×2 (01:11→12:36)
[2020-11-17] MEDS: IPRATROPIUM-ALBUTEROL 3 ML NEB INHALATION SCH ×4 (02:05→20:25)
[2020-11-17] MEDS: ARTIFICIAL TEARS-HYPROMELLOSE DROPS 15 ML BTL BOTH EYES SCH ×3 (05:07→21:40)
[2020-11-17] MEDS: HEPARIN SODIUM,PORCINE 5,000 UNIT/ML 1 ML VIAL SQ SCH ×3 (05:07→21:42)
[2020-11-17] MEDS: clonazePAM 1 MG TAB PEG/G-TUBE SCH ×3 (05:07→21:41)
[2020-11-17 06:49] LABS: African American GFR (CKD) >90 (>60 ml/min/1.73 sqM); Anion Gap 9 mmol/L; Blood Urea Nitrogen 15 mg/dL (7-17); Calcium 8.8 mg/dL (8.4-10.2); Carbon Dioxide 20 mmol/L (22-30); Chloride 109 mmol/L (98-107); Glucose 112 mg/dL (74-99); Non-African American GFR(CKD) >90 (>60 ml/min/1.73 sqM); Potassium 3.6 mmol/L (3.5-5.1); Sodium 138 mmol/L (137-145)
--- NOTE | 2020-11-17 06:52 | CONS ---
CONSULTATION DATE OF SERVICE: 11/16/2020 REASON FOR CONSULTATION: Fever. HISTORY OF PRESENT ILLNESS: The patient is a 50-year-old female who apparently did have a cardiac arrest September 09, 2020 for which the patient was treated at [facility]. The patient presented unresponsive and did have CPR and 2 doses of . Patient subsequently developed anoxic brain injury and failed to be weaned off and is status post trach and PEG. After stabilization, the patient subsequently was transferred to [facility] where the patient has been currently residing. The patient has been sent to the ER last evening from that facility for evaluation of a low-grade fever and having increasing secretions through her trach and the patient seemed to have some respiratory distress and tachypnea. No clear history of any vomiting or aspiration or diarrhea. Patient on presentation to this facility did have a fever of 101 Fahrenheit and is currently low fever of 99.9 degrees Fahrenheit axillary. The patient did have a normal white count. No lymphopenia or left shift. Kidney function was normal. Liver enzymes were mildly elevated. Initial urine was negative subsequently second urine is positive with moderate leukocyte esterase with 4-7 WBC. Rivero and influenza PCR was negative. The patient did have a blood culture obtained which is currently pending. Patient's chest x-ray reported negative for any acute cardiopulmonary disease. The patient has been admitted to the hospital. The patient is currently being treated with Levaquin and vancomycin. Infectious Disease was consulted for further management of antibiotic therapy. Most of the information has been obtained from review of the chart and talking to the , as the patient was not able to provide any history. REVIEW OF SYSTEMS: Positive points have been mentioned in HPI. Complete review could not be completed because of underlying mental status. PAST MEDICAL HISTORY: Hypertension, cardiac arrest, anoxic brain injury and heart failure. PAST SURGICAL HISTORY: Tracheostomy and a PEG tube placement. SOCIAL HISTORY: No history of smoking, drinking or drug use. FAMILY HISTORY: No pertinent findings noticed. ALLERGIES: No known drug allergies. MEDICATIONS: The patient is currently on vancomycin, Pharmacy to dose, Levaquin, Topamax, Senokot, Narcan, Keppra, hydralazine, Lasix, Pepcid, Klonopin, Coreg, DuoNeb, Tylenol. PHYSICAL EXAMINATION: VITAL SIGNS: Blood pressure 142/83 with a pulse of 102, temperature 98.9, she is 99% on trach collar. GENERAL DESCRIPTION: Patient is an elderly male lying in bed in no distress. No tachypnea or accessory muscles of respiration use. HEENT: Examination shows no pallor or scleral icterus. Oral mucous membrane is dry. NECK: Trachea central, no thyromegaly. LUNGS: Unlabored breathing, coarse breath sounds bilaterally. No wheeze or crackle. HEART: S1-S2, regular rate and rhythm. ABDOMEN: Soft, no tenderness. No guarding or rigidity. EXTREMITIES: No edema of the feet. SKIN: No rash or mass palpable. NEUROLOGICAL: Patient is unresponsive. Orientation could not be determined. LABORATORY DATA: Hemoglobin 11.1, white count 10.2, BUN of 21, creatinine 0.65. Urine was positive. Chest x-ray negative. DIAGNOSTIC IMPRESSION: Patient admitted to the hospital with low-grade fever in this patient who was noticed to have a significant respiratory secretion through her trach with history of anoxic brain injury. Chest x-ray reported negative for any acute infiltrate with concern for possible tracheobronchitis versus urinary tract infection to be the source of her fever in this patient who is a detention resident and did have a prolonged hospital stay. We will need to cover for both resistant Gram-positive as well as Gram-negative pathogen. PLAN: 1. Change Snider catheter and obtain urine culture from new Snider. 2. We will keep the patient on vancomycin, Pharmacy to dose. Discontinue Levaquin. Start cefepime 2 grams q12h to cover for the Gram-negative. 3. We will follow on clinical condition and culture to further adjust medication if needed. Thank you for this consultation. Will follow this patient along with you. MMODL / IJN: [id number] /
[2020-11-17 07:10] LABS: Glucose,Whole Blood 123 mg/dL (75-99)
[2020-11-17] MEDS: TOPIRAMATE 100 MG TAB PEG/G-TUBE SCH ×2 (09:29→21:41)
[2020-11-17] MEDS: carvediloL 12.5 MG TAB PEG/G-TUBE SCH ×2 (09:29→16:55)
[2020-11-17] MEDS: FUROSEMIDE 20 MG TAB PEG/G-TUBE SCH (09:29)
[2020-11-17] MEDS: amLODIPine 10 MG TAB PEG/G-TUBE SCH (09:30)
[2020-11-17] MEDS: hydrALAZINE HCL 50 MG TAB PEG/G-TUBE SCH ×2 (09:30→21:41)
[2020-11-17] MEDS: levETIRAcetam ORAL SOLN 500 MG/5 ML CUP PEG/G-TUBE SCH ×2 (09:30→21:43)
[2020-11-17] MEDS: FAMOTIDINE 20 MG TAB PEG/G-TUBE SCH ×2 (09:30→21:41)
[2020-11-17] MEDS: CEFEPIME 2 GM in SODIUM CHLORIDE 0.9% 100 ML IVPB SCH ×2 (09:30→21:42)
[2020-11-17] MEDS: PHENYTOIN SODIUM INJ 50 MG/ML 2 ML VIAL IVP SCH ×2 (09:31→17:29)
[2020-11-17 11:18] LABS: Glucose,Whole Blood 114 mg/dL (75-99)
[2020-11-17] MEDS: VANCOMYCIN 1,750 MG in SODIUM CHLORIDE 0.9% 500 ML 500 ML IVPB SCH (13:26)
[2020-11-17] MEDS ORDERED: LORazepam 2 MG/ML INJ IV STA ×2 (16:17→16:47)
[2020-11-17] MEDS ORDERED: levETIRAcetam IV 1,500 MG in SALINE 1 100ML.BAG IVPB STA (16:32)
--- NOTE | 2020-11-17 16:32 | P.PN ---
Subjective Progress Note Date: 11/17/20 In seeing this patient for the first time and that he was seen yesterday by Dr. Herring for neurological workup the. Please refer to Dr. Herring's note for further neurological details. Patient was started on Dilantin [address] Herring for myoclonic jerks. She is on 3 other anti-epileptic drugs. Upon seeing the patient the was at bedside and the patient was having jerking causes stated that the she is getting better in his opinion and that she is opening her eyes upon asking her. Upon seeing the patient she was having myoclonic jerk. Upon asking the patient's nurse she stated that she's been have myoclonic jerks since the patient presented to the hospital. Upon talking to the patient's regarding the discussion between Dr. Herring deals with hospice he said I'm not interested. Patient stated that since she had that a cardiac arrest she'll just open and close her eyes and from the sound of what states, the patient she doesn't do much or interact with him. Objective - Vital Signs Vital signs: Vital Signs Temp 99.8 F H 11/17/20 14:00 Pulse 101 H 11/17/20 14:00 Resp 20 11/17/20 14:00 BP 171/69 11/17/20 14:00 Pulse Ox 100 11/17/20 14:00 Intake & Output 11/16/20 11/17/20 11/17/20 18:59 06:59 18:59 Intake Total 0 Output Total 600 625 Balance -600 -625 Weight 57 kg 71.5 kg Intake: Oral 0 Output: Urine 600 625 Other: Voiding Method Indwelling Catheter Indwelling Catheter Indwelling Catheter - Exam Gen.: The patient is reclining in the bed. She is obese. She is in no acute di stress. Neurological examination Mental status: The patient is nonverbal. She follows no commands.There is no visual tracking. There is no withdrawal from noxious stimulation. She had continuous myoclonic jerks of the face shoulder region. Cranial nerves: Pupils are equal at 5 mm and reactive. Gaze initially was midline and then upon checking again she had the gaze that seemed to be fixated to the left. There is no obvious facial asymmetry. Motor: There is no volitional movement. She had continuous myoclonic jerks of the face shoulder region. Sensation: There is no withdrawal from noxious stimulation. - Labs CBC & Chem 7: 11/15/20 18:50 11/17/20 05:51 Labs: Abnormal Lab Results - Last 24 Hours (Table) 11/16/20 11/16/20 11/17/20 Range/Units 15:50 20:12 05:51 Chloride 109 H (98-107) mmol/L Carbon Dioxide 20 L (22-30) mmol/L Glucose 112 H (74-99) mg/dL POC Glucose (mg/dL) 122 H (75-99) mg/dL Urine Appearance Cloudy H (Clear) Urine Protein 1+ H (Negative) Urine Blood Small H (Negative) Ur Leukocyte Esterase Moderate H (Negative) Urine RBC 173 H (0-5) /hpf Urine WBC 47 H (0-5) /hpf Urine Bacteria Rare H (None) /hpf Urine Mucus Occasional H (None) /hpf 11/17/20 11/17/20 Range/Units 07:00 11:16 Chloride (98-107) mmol/L Carbon Dioxide (22-30) mmol/L Glucose (74-99) mg/dL POC Glucose (mg/dL) 123 H 114 H (75-99) mg/dL Urine Appearance (Clear) Urine Protein (Negative) Urine Blood (Negative) Ur Leukocyte Esterase (Negative) Urine RBC (0-5) /hpf Urine WBC (0-5) /hpf Urine Bacteria (None) /hpf Urine Mucus (None) /hpf Microbiology - Last 24 Hours (Table) 11/16/20 11:44 Blood Culture - Preliminary Blood No Growth after 24 hours 11/16/20 11:24 Blood Culture - Preliminary Blood No Growth after 24 hours 11/17/20 02:05 Gram Stain - Preliminary Sputum Sputum Culture - Preliminary 11/16/20 12:31 Gram Stain - Preliminary Sputum Sputum Culture - Preliminary 11/16/20 15:50 Urine Culture - Preliminary Urine,Voided 11/15/20 18:50 Blood Culture - Preliminary Blood No Growth after 24 hours 11/15/20 18:50 Blood Culture - Preliminary Blood No Growth after 24 hours Assessment and Plan Assessment: 1. Myoclonic status to cerebral anoxia (09/29/20), perhaps exacerbated by current infection 2. Based on the fact the patient is already receiving 3 antiepileptic medications, it is likely that she has had myoclonic seizures previously 3. History of severe anoxic brain injury due to cardiac arrest back in 2020 4. History of cardiac arrest 5. Acute tracheobronchitis Plan: On Dilantin 300 mg daily, Klonopin 1 mg 3 times a day, phenobarbital 64.8 mg one 3 times a day and Keppra 1500 mg 1 tablet twice a day. I'll load the patient with Keppra 1500 mg and increase it to Keppra 2 g twice a day. Notified the nurse to give 2 mg Ativan stat right now. And and 50 minutes if the patient continues to have these jerks to give another 2 mg if not then to give 1 mg. All also put the patient on Ativan 1 mg every 4 hours. Upon speaking with the patient regarding her condition he stated "just give her the medication and good bye" (patient nurse accompanied me). From neurological standpoint the patient is not realistic regarding the patient's condition and he does not understand her condition. I highly recommend for ethics team to be involved. Infection disease is on board. We'll defer the rest of the medical measure to the primary team. German Sharma MD Neuro-Hospitalist Time with Patient: Less than 30
--- NOTE | 2020-11-17 16:42 | P.PN ---
Subjective Progress Note Date: 11/17/20 Principal diagnosis: Respiratory fire, pneumonia. This is a 50-year-old female, -Citizen Of [place] female, presented to the emergency room yesterday from [facility]. Patient was brought in mostly because of increased shortness of breath, fever, and excessive tracheal secretions noted fr om her tracheostomy. Chest x-ray showed no evidence of pneumonia, patient had history of multiple types of infections including MRSA infections, and I was asked to see her on consultation. Apparently the patient had history of cardiac arrest back on September 29 2020, and she presented at the time to [facility] unresponsive, CPR was initiated, received multiple rounds of CPR and 2 doses of epinephrine. Patient eventually developed severe anoxic brain injury. Patient was treated with the hypothermia protocol. And she was on mechanical ventilation for quite some time. Patient was eventually a failure to wean, and underwent tracheostomy and PEG tube placement. Eventually she was transferred to [facility] on multiple medications including seizure medications, yesterday, the patient was noted to have significant secretions from her tracheostomy, and she was constantly coughing and requiring suctioning, she was also noted to have low-grade fever, chest x-ray showed no evidence of infiltrate. Patient was admitted and this consult was initiated. No information could be obtained from the patient and no family members around. Information was obtained from records from the [facility] facility where the patient was Progress note dated 11/17/2020. This is a 50-year-old black female, presented to the emergency department, from a [facility]. She apparently came in was brought in because of increasing shortness of breath, fever, and excessive tracheal secretions noted from her tracheostomy site. Chest x-ray showed no evidence of pneumonia, and the patient was admitted with a diagnosis of tracheobronchitis. 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 She has a prior history of cardiac arrest back on 09/29/2020. She apparently presented to [facility] at that time and she was unresponsive. The patient was started on CPR, and received multiple rounds of CPR and medications, and was thought to have developed severe anoxic brain injury. She did undergo the hypothermia protocol there, and was on mechanical ventilation for some time, status post tracheostomy and PEG tube placement, eventual transfer to one of the [facility] here and [place]. Currently, the patient is unresponsive. Sodium is 138, potassium 3.6, chlorides 109, CO2 20, anion gap 9, BUN 15, and creatinine 0.54. The urinalysis from November 16 is consistent with a urinary tract infection. Microbiology is currently pending or negative including blood urine and sputum sampling. Objective - Vital Signs Vital signs: Vital Signs Temp 99.8 F H 11/17/20 14:00 Pulse 101 H 11/17/20 14:00 Resp 20 11/17/20 14:00 BP 171/69 11/17/20 14:00 Pulse Ox 100 11/17/20 16:03 Intake & Output 11/16/20 11/17/20 11/17/20 18:59 06:59 18:59 Intake Total 0 Output Total 600 625 Balance -600 -625 Weight 57 kg 71.5 kg Intake: Oral 0 Output: Urine 600 625 Other: Voiding Method Indwelling Catheter Indwelling Catheter Indwelling Catheter - Exam No acute distress, unresponsive. The patient has a midline tracheostomy. She has a 40% trach collar. HEENT examination is grossly unremarkable. Mucous membranes are dry. Neck supple. Full range of motion. No adenopathy thyromegaly or neck vein distention. Midline tracheostomy is noted. Cardiovascular examination reveals regular rhythm rate. S1-S2 normal. No S3 or S4. No discernible murmur noted. Heart sounds are distant. Heart rate 101 bpm. Lungs reveal coarse bilateral rhonchi. Breath sounds equal. No wheezes or crackles. Abdomen soft bowel sounds are heard. No masses or tenderness. PEG tube noted. Extremities are intact. No cyanosis clubbing or edema. Skin is without rash or lesion. Neurologic examination reveals a patient who is unresponsive secondary to anoxic brain injury. - Labs CBC & Chem 7: 11/15/20 18:50 11/17/20 05:51 Labs: Abnormal Lab Results - Last 24 Hours (Table) 11/16/20 11/17/20 11/17/20 Range/Units 20:12 05:51 07:00 Chloride 109 H (98-107) mmol/L Carbon Dioxide 20 L (22-30) mmol/L Glucose 112 H (74-99) mg/dL POC Glucose (mg/dL) 122 H 123 H (75-99) mg/dL 11/17/20 Range/Units 11:16 Chloride (98-107) mmol/L Carbon Dioxide (22-30) mmol/L Glucose (74-99) mg/dL POC Glucose (mg/dL) 114 H (75-99) mg/dL Microbiology - Last 24 Hours (Table) 11/16/20 11:44 Blood Culture - Preliminary Blood No Growth after 24 hours 11/16/20 11:24 Blood Culture - Preliminary Blood No Growth after 24 hours 11/17/20 02:05 Gram Stain - Preliminary Sputum Sputum Culture - Preliminary 11/16/20 12:31 Gram Stain - Preliminary Sputum Sputum Culture - Preliminary 11/16/20 15:50 Urine Culture - Preliminary Urine,Voided 11/15/20 18:50 Blood Culture - Preliminary Blood No Growth after 24 hours 11/15/20 18:50 Blood Culture - Preliminary Blood No Growth after 24 hours Assessment and Plan Assessment: Acute tracheobronchitis, doubt pneumonia. History of severe anoxic brain injury secondary to cardiac arrest, back on 09/29/2020. History of seizure disorder, secondary to anoxic brain injury. Possible myoclonic jerks or seizure activity, to be seen by neurology. History of cardiac arrest. History of benign essential hypertension. Status post PEG tube placement for nutritional support. Status post tracheostomy tube placement for failure to wean from mechanical ventilation. Plan: Plan dated 11/17/2020. We'll continue with supportive measures. Continue with daily tracheostomy care. The patient's currently on antibiotics for suspected tracheobronchitis, rule out pneumonia. The patient will continue on bronchodilators, and nutritional support via her PEG tube. In addition, we'll continue with GI and DVT prophylaxis, and have her seen by both infectious diseases and neurology services. Prognosis is obviously very poor. She is a full code CODE STATUS should be addressed by the primary service. Additional recommendations suggestions are forthcoming. Time with Patient: Less than 30
[2020-11-17 16:46] LABS: Glucose,Whole Blood 111 mg/dL (75-99)
[2020-11-17 20:52] LABS: Glucose,Whole Blood 134 mg/dL (75-99)
[2020-11-17] MEDS: BACITRACIN ZINC 500 UNIT/GM OINT 28.4 GM TUBE TOPICAL SCH (21:41)
[2020-11-17] MEDS: SENNOSIDES 8.6 MG TAB PEG/G-TUBE SCH (21:41)
[2020-11-17] MEDS: ACETAMINOPHEN TAB 325 MG TAB PEG/G-TUBE PRN (21:41)
[2020-11-17] MEDS: LORazepam 2 MG/ML INJ IV PRN (21:43)
--- NOTE | 2020-11-17 23:37 | P.PN ---
Progress Note - Text Progress Note Date: 11/17/20 Chief Complaint: Fever History of presenting complaint: This is a 50-year-old patient, who is a resident of [facility] being followed by Dr. Packer. Patient herself is nonverbal. History from the transfer notes and per the nurses obtained. patient had a cardiac arrest and was transferred to [facility]. From there she was transferred to [facility] and from there she was transferred to [facility] on. Patient has a tracheostomy tube and a PEG tube. Chronic stable medical conditions include anoxic brain injury, hypertension, seizure disorder, GERD. History of MRSA. Maybe at her baseline she opens her eyes. EMS was called out as patient was noted to have a fever. Transferred to the hospital. Patient normally has a trach: Collar at 21%. Patient also noted to have some jerking movements. More so off the abdomen. Some around the mouth. She was seen initially by neurologist Dr. Herring. Patient felt to have myoclonic jerks. Phenytoin was added after getting a bolus. Today-no further myoclonic chills up so. Patient is noncommunicative. Review of systems: Patient is not verbal and skin without pain review of systems Active Medications Acetaminophen (Acetaminophen Tab 325 Mg Tab) 650 mg PEG/G-TUBE Q6H PRN PRN Reason: Mild Pain Last Admin: 11/17/20 21:41 Dose: 650 mg Documented by: Albuterol/Ipratropium (Ipratropium-Albuterol 3 Ml Neb) 3 ml INHALATION RT-Q6H [facility] Last Admin: 11/17/20 20:25 Dose: 3 ml Documented by: Amlodipine Besylate (Amlodipine 10 Mg Tab) 10 mg PEG/G-TUBE DAILY [facility] Last Admin: 11/17/20 09:30 Dose: 10 mg Documented by: Artificial Tears (Artificial Tears-Hypromellose Drops 15 Ml Btl) 2 drops BOTH EYES TID@0500,1300,2100 [facility] Last Admin: 11/17/20 21:40 Dose: 2 drops Documented by: Bacitracin (Bacitracin Zinc 500 Unit/Gm Oint 28.4 Gm Tube) 1 applic TOPICAL HS [facility] Last Admin: 11/17/20 21:41 Dose: 1 applic Documented by: Bisacodyl (Bisacodyl 10 Mg Supp) 10 mg RECTAL DAILY PRN PRN Reason: Constipation Carvedilol (Carvedilol 12.5 Mg Tab) 12.5 mg PEG/G-TUBE AC-BID [facility] Last Admin: 11/17/20 16:55 Dose: 12.5 mg Documented by: Clonazepam (Clonazepam 1 Mg Tab) 1 mg PEG/G-TUBE TID@0500,1300,2100 [facility] Last Admin: 11/17/20 21:41 Dose: 1 mg Documented by: Famotidine (Famotidine 20 Mg Tab) 20 mg PEG/G-TUBE BID [facility] Last Admin: 11/17/20 21:41 Dose: 20 mg Documented by: Furosemide (Furosemide 20 Mg Tab) 20 mg PEG/G-TUBE DAILY [facility] Last Admin: 11/17/20 09:29 Dose: 20 mg Documented by: Heparin Sodium (Porcine) (Heparin Sodium,Porcine 5,000 Unit/Ml 1 Ml Vial) 5,000 unit SQ TID@0500,1300,2100 [facility] Last Admin: 11/17/20 21:42 Dose: 5,000 unit Documented by: Hydralazine HCl (Hydralazine Hcl 50 Mg Tab) 50 mg PEG/G-TUBE BID [facility] Last Admin: 11/17/20 21:41 Dose: 50 mg Documented by: Sodium Chloride (Saline 0.9%) 1,000 mls @ 75 mls/hr IV .[id number] [facility] Last Admin: 11/17/20 12:36 Dose: 75 mls/hr Documented by: Vancomycin HCl 1,750 mg/ (Sodium Chloride) 500 mls @ 167 mls/hr IVPB Q12H [facility] Last Admin: 11/17/20 13:26 Dose: 167 mls/hr Documented by: Cefepime HCl 2 gm/ Sodium (Chloride) 100 mls @ 25 mls/hr IVPB Q12HR [facility] Last Admin: 11/17/20 21:42 Dose: 25 mls/hr Documented by: Levetiracetam (Levetiracetam Oral Soln 500 Mg/5 Ml Cup) 2,000 mg PEG/G-TUBE BID [facility] Last Admin: 11/17/20 21:43 Dose: 2,000 mg Documented by: Lorazepam (Lorazepam 2 Mg/Ml Inj) 1 mg IV Q4HR PRN PRN Reason: Seizures Last Admin: 11/17/20 21:43 Dose: 1 mg Documented by: Naloxone HCl (Naloxone 0.4 Mg/Ml 1 Ml Vial) 0.2 mg IV Q2M PRN PRN Reason: Opioid Reversal Phenobarbital (Phenobarbital 32.4 Mg Tab) 64.8 mg PEG/G-TUBE TID@0500,1300,2100 [facility] Last Admin: 11/17/20 21:41 Dose: 64.8 mg Documented by: Phenytoin Sodium (Phenytoin Sodium Inj 50 Mg/Ml 2 Ml Vial) 100 mg IVP Q8HR [facility] Last Admin: 11/17/20 17:29 Dose: 100 mg Documented by: Senna (Sennosides 8.6 Mg Tab) 17.2 mg PEG/G-TUBE HS [facility] Last Admin: 11/17/20 21:41 Dose: 17.2 mg Documented by: Topiramate (Topiramate 100 Mg Tab) 100 mg PEG/G-TUBE BID [facility] Last Admin: 11/17/20 21:41 Dose: 100 mg Documented by: Past medical history to include: Anoxic brain injury, hypertension, seizure disorder, GERD, MRSA infection, PEG tube for feeding, tracheostomy tube Social history: . Nonverbal. Currently at [facility] on. Tracheostomy tube PEG tube. Family history: Patient cannot tell Physical examination: VITAL SIGNS: 99.8, 101, 20, 170 on by 69, 100% on trach collar GENERAL: BMI 33.5, laying in bed. EYES: Pupils equal. Conjunctiva normal. HEENT: External appearance of nose and ears normal, oral cavity. Dry. NECK: JVD not raised; tracheostomy in place with some secretions. HEART: First and second heart sounds are normal; no edema. LUNGS: Respiratory rate increased, decreased breath sounds . ABDOMEN: Soft, nontender, liver spleen not palpable, no masses palpable. PSYCH: Unable to assessl. NEUROLOGICAL: [Cranial nerves grossly intact; no facial asymmetry, no myoclonic jerks today. LYMPHATICS: No lymph nodes palpable in the axilla and neck INVESTIGATIONS, reviewed in the clinical context: November 17: Potassium 3.6 creatinine 0.5 for WBC 10.2 hemoglobin 11.1 platelets 253 potassium 3.8 creatinine 0.65 UA positive for leukoesterase, WBC Coronavirus, influenza type A, influenza type B: All not detected EKG tracing personally reviewed by me-no sinus rhythm Chest x-ray film personally reviewed by me-tracheostomy tube. No recent infiltrates Assessment and plan: -This is a patient presents with a septic picture. X-rays clear. Has a positive urine. Also possible tracheobronchitis. Patient IV cefepime. -Chronic medical debility, with complete assistance -Acute UTI with cystitis, and Levaquin -Anoxic brain injury, chronic follow clinically -Essential hypertension continue with amlodipine, Coreg, hydralazine -Myoclonic jerks with Seizure disorder continue with Keppra, Topamax, phenobarbital. Patient with having some jerking movements. Dilantin added -Chronic tracheostomy and PEG tube , for feeding. Follow-up with neurology.
[2020-11-18] MEDS: PHENYTOIN SODIUM INJ 50 MG/ML 2 ML VIAL IVP SCH ×4 (00:33→23:56)
[2020-11-18] MEDS: VANCOMYCIN 1,750 MG in SODIUM CHLORIDE 0.9% 500 ML 500 ML IVPB SCH ×3 (01:11→23:55)
[2020-11-18] MEDS: IPRATROPIUM-ALBUTEROL 3 ML NEB INHALATION SCH ×4 (03:07→19:39)
--- NOTE | 2020-11-18 03:21 | PN ---
PROGRESS NOTE DATE OF SERVICE: 11/17/2020 REASON FOR FOLLOWUP: Pneumonia and bacteremia. INTERVAL HISTORY: The patient did have a low-grade fever this evening of 100.2 degrees Fahrenheit. The patient is hemodynamically stable, not on pressor support. FiO2 is currently stable at 100% on trach collar. No respiratory distress, diarrhea on any other change reported by nursing staff. PHYSICAL EXAMINATION: Blood pressure 146/79, pulse of 90, temperature 100.2. She is 100% on trach collar. General description is a middle-aged female lying in bed in no distress. Respiratory system: Unlabored breathing, decreased breath sounds at the base. No wheeze. HEART: S1, S2. Regular rate and rhythm. ABDOMEN: Soft, no tenderness. LABS: BUN of 15 and creatinine 0.54. Sputum is pending. Blood cultures came back positive gram-positive. DIAGNOSTIC IMPRESSION AND PLAN: Patient admitted to the hospital with increasing shortness of breath and fever with concern for possible pneumonia/sepsis urinary tract infection. Patient is covered with cefepime and vancomycin. Blood culture came back positive with gram-positive waiting for the ID sensitivity. Blood cultures will be repeated to document clearance of bacteremia and continue supportive care. MMODL / IJN: [id number] /
[2020-11-18] MEDS: SODIUM CHLORIDE 0.9% 1,000 ML IV SCH ×2 (04:14→19:02)
[2020-11-18] MEDS: clonazePAM 1 MG TAB PEG/G-TUBE SCH ×3 (05:14→20:37)
[2020-11-18] MEDS: ACETAMINOPHEN TAB 325 MG TAB PEG/G-TUBE PRN ×2 (05:14→12:54)
[2020-11-18] MEDS: ARTIFICIAL TEARS-HYPROMELLOSE DROPS 15 ML BTL BOTH EYES SCH ×3 (05:15→20:38)
[2020-11-18] MEDS: LORazepam 2 MG/ML INJ IV PRN ×4 (05:15→20:46)
[2020-11-18] MEDS: HEPARIN SODIUM,PORCINE 5,000 UNIT/ML 1 ML VIAL SQ SCH ×3 (05:15→20:37)
[2020-11-18 07:06] LABS: Glucose,Whole Blood 115 mg/dL (75-99)
[2020-11-18] MEDS ORDERED: LORazepam 2 MG/ML INJ IV STA (09:05)
[2020-11-18] MEDS: levETIRAcetam ORAL SOLN 500 MG/5 ML CUP PEG/G-TUBE SCH ×2 (09:06→20:36)
[2020-11-18] MEDS: amLODIPine 10 MG TAB PEG/G-TUBE SCH (09:06)
[2020-11-18] MEDS: TOPIRAMATE 100 MG TAB PEG/G-TUBE SCH ×2 (09:06→20:37)
[2020-11-18] MEDS: FAMOTIDINE 20 MG TAB PEG/G-TUBE SCH ×2 (09:06→20:37)
[2020-11-18] MEDS: carvediloL 12.5 MG TAB PEG/G-TUBE SCH ×2 (09:06→15:50)
[2020-11-18] MEDS: CEFEPIME 2 GM in SODIUM CHLORIDE 0.9% 100 ML IVPB SCH ×2 (09:06→20:38)
[2020-11-18] MEDS: FUROSEMIDE 20 MG TAB PEG/G-TUBE SCH (09:06)
[2020-11-18] MEDS: hydrALAZINE HCL 50 MG TAB PEG/G-TUBE SCH ×2 (09:06→20:37)
[2020-11-18 11:44] LABS: Glucose,Whole Blood 138 mg/dL (75-99)
--- NOTE | 2020-11-18 13:04 | P.PN ---
Subjective Progress Note Date: 11/18/20 The patient was seen at bedside and the she has intermittent jerks of the face shoulder region as well as trunk but not as pronounced as yesterday. According to the nurse and when she came in early in the morning was the much improved today compared to when she had her yesterday. But noticed jerking that was becoming more frequent after 2-3 hours. Therefore I asked the nurse that to give the patient 2 milligram of Ativan and she received at around 919am today then recieved PRN 1mg ordere at 11:23am today. On seeing the patient she continues to be unresponsive and continues to have jerking of the face shoulder and trunk but not as significant as yesterday. Yesterday the patient received 2 mg Ativan at 1625 9 11/19/2019 and then she received another 2 mg Ativan around 1655 that yesterday as well then was loaded with Keppra 1500 mg one time yesterday. Currently on Dilantin 300 mg daily, Klonopin 1 mg 3 times a day, phenobarbital 64.8 mg one 3 times a day and Keppra 2000 mg 1 tablet twice a day. She is on Ativan 1mg [id number] PRN Objective - Vital Signs Vital signs: Vital Signs Temp 99.3 F 11/18/20 07:53 Pulse 90 11/18/20 12:03 Resp 20 11/18/20 12:03 BP 164/82 11/18/20 07:53 Pulse Ox 100 11/18/20 08:05 Intake & Output 11/17/20 11/18/20 11/18/20 18:59 06:59 18:59 Output Total 300 200 450 Balance -300 -200 -450 Weight 71.5 kg 71.6 kg Output: Urine 300 200 450 Other: Voiding Method Indwelling Catheter Indwelling Catheter Indwelling Catheter - Exam Gen.: The patient is lying in bed. She is obese. She is in no acute distress. Resp: Trach. Gastrointestinal: Has PEG tube. Neurological examination Mental status: The patient is nonverbal. She follows no commands.There is no visual tracking. There is no withdrawal from noxious stimulation. She had intermittent myoclonic jerks of the face, shoulder and trunk region. Cranial nerves: Pupils are equal at 5 mm and reactive. Primary gaze is midline. There is no obvious facial asymmetry. Motor: There is no volitional movement. Sensation: There is no withdrawal from noxious stimulation. - Labs CBC & Chem 7: 11/15/20 18:50 11/17/20 05:51 Labs: Abnormal Lab Results - Last 24 Hours (Table) 11/17/20 11/17/20 11/18/20 Range/Units 16:45 20:49 07:00 POC Glucose (mg/dL) 111 H 134 H 115 H (75-99) mg/dL 11/18/20 Range/Units 11:41 POC Glucose (mg/dL) 138 H (75-99) mg/dL Microbiology - Last 24 Hours (Table) 11/17/20 02:05 Gram Stain - Preliminary Sputum Sputum Culture - Preliminary Gram Neg Bacilli 11/16/20 12:31 Gram Stain - Preliminary Sputum Sputum Culture - Preliminary Gram Neg Bacilli 11/16/20 11:44 Blood Culture Gram Stain - Preliminary Blood Blood Culture - Preliminary Coagulase Negative Staph 11/15/20 18:50 Blood Culture - Preliminary Blood No Growth after 48 hours 11/15/20 18:50 Blood Culture - Preliminary Blood No Growth after 48 hours 11/16/20 15:50 Urine Culture - Final Urine,Voided 11/16/20 11:44 Blood Culture - Preliminary Blood No Growth after 24 hours 11/16/20 11:24 Blood Culture - Preliminary Blood No Growth after 24 hours Assessment and Plan Assessment: 1. 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 Based on the fact the patient is already receiving 4 antiepileptic medications, it is likely that she has had myoclonic seizures previously 3. History of severe anoxic brain injury due to cardiac arrest back in 09/29/2020 4. History of cardiac arrest 5. Acute tracheobronchitis Plan: On Dilantin 300 mg daily, Klonopin 1 mg 3 times a day, phenobarbital 64.8 mg one 3 times a day and Keppra 2000 mg 1 tablet twice a day. On Ativan 1 mg every 4 hours as needed. Recommend the patient to be transferred to a tertiary facility for long-term EEG as well as the second neurological opinion regarding the patient's condition. From neurological standpoint the patient's is not realistic regarding understanding her condition. Yesterday (11/17/2020) he would not allow me to discuss her care with him. Infection disease is on board. We'll defer the rest of the medical measure to the primary team. The plan was discussed in length with the patient's primary team as well as the nurse. German Sharma MD Neuro-Hospitalist Time with Patient: Less than 30
--- NOTE | 2020-11-18 15:38 | P.PN ---
Subjective Progress Note Date: 11/18/20 Principal diagnosis: Respiratory failure, pneumonia This is a 50-year-old female, -[place] female, presented to the emergency room yesterday from [facility]. Patient was brought in mostly because of increased shortness of breath, fever, and excessive tracheal secretions noted from her tracheostomy. Chest x-ray showed no evidence of pneumonia, patient had history of multiple types of infections including MRSA infections, and I was asked to see her on consultation. Apparently the patient had history of cardiac arrest back on September 29 2020, and she presented at the time to [facility] unresponsive, CPR was initiated, received multiple rounds of CPR and 2 doses of epinephrine. Patient eventually developed severe anoxic brain injury. Patient was treated with the hypothermia protocol. And she was on mechanical ventilation for quite some time. Patient was eventually a failure to wean, and underwent tracheostomy and PEG tube placement. Eventually she was transferred to [facility] on multiple medications including seizure medications, yesterday, the patient was noted to have significant secretions from her tracheostomy, and she was constantly coughing and requiring suctioning, she was also noted to have low-grade fever, chest x-ray showed no evidence of infiltrate. Patient was admitted and this consult was initiated. No information could be obtained from the patient and no family members around. Information was obtained from records from the [facility] facility where the patient was Progress note dated 11/17/2020. This is a 50-year-old black female, presented to the emergency department, from a retirement. She apparently came in was brought in because of increasing shortness of breath, fever, and excessive tracheal secretions noted from her tracheostomy site. Chest x-ray showed no evidence of pneumonia, and the patient was admitted with a diagnosis of tracheobronchitis. 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 She has a prior history of cardiac arrest back on 09/29/2020. She apparently presented to [facility] at that time and she was unresponsive. The patient was started on CPR, and received multiple rounds of CPR and medications, and was thought to have developed severe anoxic brain injury. She did undergo the hypothermia protocol there, and was on mechanical ventilation for some time, status post tracheostomy and PEG tube placement, eventual transfer to one of the [facility] here and [place]. Currently, the patient is unresponsive. Sodium is 138, potassium 3.6, chlorides 109, CO2 20, anion gap 9, BUN 15, and creatinine 0.54. The urinalysis from November 16 is consistent with a urinary tract infection. Microbiology is currently pending or negative including blood urine and sputum sampling. On 11/19/2019 patient seen in follow-up on medical floor. Patient remains poorly responsive, does not open eyes to voice, does not track with eyes, she is breathing spontaneously, she is on 40% trach collar, pulse ox 100%, low-grade fever, T-max in the last 24 hours is 100.5F. Patient remains on Maxipime and vancomycin. Her sputum and blood culture are positive, her sputum culture is positive for gram-negative bacilli, final culture is pending, blood culture from 11/16/2020 showed coagulase-negative staph, likely contaminant. Blood culture from the same date has shown no growth at the 48 hour ofelia. Her urinalysis also suggest possibility of underlying urinary tract infection with moderate lupus, increased white blood cells. Her COVID 19 and influenza screen were negative. Patient is on tube feedings, Jevity at 50 ML per hour, sounds are diminished, with a few scattered rhonchi. Patient appears to be in no acute distress, she is being suctioned endotracheally as needed. She is being followed [id number] she is on a combination of Dilantin and Ativan for possibility of underlying seizures. Objective - Vital Signs Vital signs: Vital Signs Temp 100.5 F H 11/18/20 12:46 Pulse 92 11/18/20 12:46 Resp 22 11/18/20 14:17 BP 155/79 11/18/20 12:46 Pulse Ox 100 11/18/20 08:05 Intake & Output 11/17/20 11/18/20 11/18/20 18:59 06:59 18:59 Output Total 300 200 450 Balance -300 -200 -450 Weight 71.5 kg 71.6 kg Output: Urine 300 200 450 Other: Voiding Method Indwelling Catheter Indwelling Catheter Indwelling Catheter - Exam GENERAL EXAM: Unresponsive, 50-year-old -[place] female, with a recent history of anoxic brain injury related to cardiac arrest, on 40% trach collar does not follow commands, does not track with eyes, drowsy, comfortable in no apparent distress. HEAD: Normocephalic/atraumatic. EYES: Normal reaction of pupils, equal size. Conjunctiva pink, sclera white. NOSE: Clear with pink turbinates. THROAT: No erythema or exudates. NECK: No masses, no JVD, no thyroid enlargement, no adenopathy. Midline tracheotomy, and patient is connected to humidified oxygen with FiO2 of 40%, she has copious yellow and green secretions out of the tracheostomy CHEST: No chest wall deformity. Symmetrical expansion. LUNGS: Equal air entry with diffuse rhonchi CVS: Regular rate and rhythm, normal S1 and S2, no gallops, no murmurs, no rubs ABDOMEN: Soft, nontender. No hepatosplenomegaly, normal bowel sounds, no guarding or rigidity. Left upper abdominal quadrant PEG tube in place, patient is receiving Jevity tube feedings currently at 50 ML per hour EXTREMITIES: No clubbing, no edema, no cyanosis, 2+ pulses and upper and lower extremities. MUSCULOSKELETAL: Muscle strength and tone normal. SPINE: No scoliosis or deformity SKIN: No rashes CENTRAL NERVOUS SYSTEM: Drowsy, does not follow commands, does not open eyes to voice, has a recent history of anoxic brain injury No focal deficits, tone is normal in all 4 extremities. - Labs CBC & Chem 7: 11/15/20 18:50 11/17/20 05:51 Labs: Abnormal Lab Results - Last 24 Hours (Table) 11/17/20 11/17/20 11/18/20 Range/Units 16:45 20:49 07:00 POC Glucose (mg/dL) 111 H 134 H 115 H (75-99) mg/dL 11/18/20 Range/Units 11:41 POC Glucose (mg/dL) 138 H (75-99) mg/dL Microbiology - Last 24 Hours (Table) 11/16/20 11:44 Blood Culture - Preliminary Blood No Growth after 48 hours 11/16/20 11:24 Blood Culture - Preliminary Blood No Growth after 48 hours 11/17/20 02:05 Gram Stain - Preliminary Sputum Sputum Culture - Preliminary Gram Neg Bacilli 11/16/20 12:31 Gram Stain - Preliminary Sputum Sputum Culture - Preliminary Gram Neg Bacilli 11/16/20 11:44 Blood Culture Gram Stain - Preliminary Blood Blood Culture - Preliminary Coagulase Negative Staph 11/15/20 18:50 Blood Culture - Preliminary Blood No Growth after 48 hours 11/15/20 18:50 Blood Culture - Preliminary Blood No Growth after 48 hours 11/16/20 15:50 Urine Culture - Final Urine,Voided Assessment and Plan Plan: Assessment: #1. Acute tracheobronchitis, sputum culture shows gram-negative bacilli, doubt pneumonia #2. History of severe anoxic brain injury secondary to cardiac arrest on 09/29/2020 status post tracheostomy and PEG tube placement #3. Seizure disorder secondary to anoxic brain injury currently on a combination of Keppra, Dilantin and Ativan #4. Myoclonic jerks or seizure activity, followed by neurology #5. History of cardiac arrest #6. History of benign essential hypertension #7. Status post PEG tube placement for nutritional support Plan: Continue current antibiotic coverage, will await results of the final sputum culture, continue weaning FiO2, head of the bed up at least 30 at all times, maintain aspiration precautions, provide endotracheal suctioning as needed. Continue bronchodilators, continue GI and DVT prophylaxis. I performed a history & physical examination of the patient and discussed their management with my nurse practitioner, Verena Jimenez. I reviewed the nurse practitioner's note and agree with the documented findings and plan of care. Lung sounds are positive for diffuse rhonchi. The findings and the impression was discussed with the patient. I attest to the documentation by the nurse practitioner. Time with Patient: Less than 30
[2020-11-18] MEDS: SENNOSIDES 8.6 MG TAB PEG/G-TUBE SCH (20:37)
[2020-11-18] MEDS: BACITRACIN ZINC 500 UNIT/GM OINT 28.4 GM TUBE TOPICAL SCH (20:39)
[2020-11-18] MEDS ORDERED: VANCOMYCIN TROUGH DUE 1 EACH MISC MISCELLANE ONE (23:00)
--- NOTE | 2020-11-18 23:28 | P.PN ---
Progress Note - Text Progress Note Date: 11/18/20 Chief Complaint: Fever History of presenting complaint: This is a 50-year-old patient, who is a resident of [facility] being followed by Dr. Packer. Patient herself is nonverbal. History from the transfer notes and per the nurses obtained. patient had a cardiac arrest and was transferred to [facility]. From there [facility] was [facility] and from there she was transferred to [facility] on. Patient has a tracheostomy tube and a PEG tube. Chronic stable medical conditions include anoxic brain injury, hypertension, seizure disorder, GERD. History of MRSA. Maybe at her baseline she opens her eyes. EMS was called out as patient was noted to have a fever. Transferred to the hospital. Patient normally has a trach: Collar at 21%. Patient also noted to have some jerking movements. More so off the abdomen. Some around the mouth. She was seen initially by neurologist Dr. Herring. Patient felt to have myoclonic jerks. Phenytoin was added after getting a bolus. Patient is requiring frequent Ativan. As myoclonic jerks persist. Today-still having intermittent myoclonic jerks. Response to Ativan. Had a lengthy discussion with Dr. Espinoza from neurology. Given that patient is on multiple medication not responding. Patient will benefit from continuous EEG monitoring system to site, which further intervention and wanted medications to be given. Smoking nurse also. Spoke to Gloria in [place] accepting hospitalist. And again report. Patient accepted day. Currently no beds available. Meantime continue current medications Review of systems: Patient is not verbal and skin without pain review of systems Active Medications Acetaminophen (Acetaminophen Tab 325 Mg Tab) 650 mg PEG/G-TUBE Q6H PRN PRN Reason: Mild Pain Last Admin: 11/18/20 12:54 Dose: 650 mg Documented by: Albuterol/Ipratropium (Ipratropium-Albuterol 3 Ml Neb) 3 ml INHALATION RT-Q6H MJ Last Admin: 11/18/20 19:39 Dose: 3 ml Documented by: Amlodipine Besylate (Amlodipine 10 Mg Tab) 10 mg PEG/G-TUBE DAILY MJ Last Admin: 11/18/20 09:06 Dose: 10 mg Documented by: Artificial Tears (Artificial Tears-Hypromellose Drops 15 Ml Btl) 2 drops BOTH EYES TID@0500,1300,2100 [facility] Last Admin: 11/18/20 20:38 Dose: 2 drops Documented by: Bacitracin (Bacitracin Zinc 500 Unit/Gm Oint 28.4 Gm Tube) 1 applic TOPICAL HS [facility] Last Admin: 11/18/20 20:39 Dose: 1 applic Documented by: Bisacodyl (Bisacodyl 10 Mg Supp) 10 mg RECTAL DAILY PRN PRN Reason: Constipation Carvedilol (Carvedilol 12.5 Mg Tab) 12.5 mg PEG/G-TUBE AC-BID [facility] Last Admin: 11/18/20 15:50 Dose: 12.5 mg Documented by: Clonazepam (Clonazepam 1 Mg Tab) 1 mg PEG/G-TUBE TID@0500,1300,2100 [facility] Last Admin: 11/18/20 20:37 Dose: 1 mg Documented by: Famotidine (Famotidine 20 Mg Tab) 20 mg PEG/G-TUBE BID [facility] Last Admin: 11/18/20 20:37 Dose: 20 mg Documented by: Furosemide (Furosemide 20 Mg Tab) 20 mg PEG/G-TUBE DAILY [facility] Last Admin: 11/18/20 09:06 Dose: 20 mg Documented by: Heparin Sodium (Porcine) (Heparin Sodium,Porcine 5,000 Unit/Ml 1 Ml Vial) 5,000 unit SQ TID@0500,1300,2100 [facility] Last Admin: 11/18/20 20:37 Dose: 5,000 unit Documented by: Hydralazine HCl (Hydralazine Hcl 50 Mg Tab) 50 mg PEG/G-TUBE BID [facility] Last Admin: 11/18/20 20:37 Dose: 50 mg Documented by: Sodium Chloride (Saline 0.9%) 1,000 mls @ 75 mls/hr IV .[id number] [facility] Last Admin: 11/18/20 19:02 Dose: Not Given Documented by: Vancomycin HCl 1,750 mg/ (Sodium Chloride) 500 mls @ 167 mls/hr IVPB Q12H [facility] Last Admin: 11/18/20 12:52 Dose: 167 mls/hr Documented by: Cefepime HCl 2 gm/ Sodium (Chloride) 100 mls @ 25 mls/hr IVPB Q12HR [facility] Last Admin: 11/18/20 20:38 Dose: 25 mls/hr Documented by: Levetiracetam (Levetiracetam Oral Soln 500 Mg/5 Ml Cup) 2,000 mg PEG/G-TUBE BID [facility] Last Admin: 11/18/20 20:36 Dose: 2,000 mg Documented by: Lorazepam (Lorazepam 2 Mg/Ml Inj) 1 mg IV Q4HR PRN PRN Reason: Seizures Last Admin: 11/18/20 20:46 Dose: 1 mg Documented by: Naloxone HCl (Naloxone 0.4 Mg/Ml 1 Ml Vial) 0.2 mg IV Q2M PRN PRN Reason: Opioid Reversal Phenobarbital (Phenobarbital 32.4 Mg Tab) 64.8 mg PEG/G-TUBE TID@0500,1300,2100 [facility] Last Admin: 11/18/20 20:37 Dose: 64.8 mg Documented by: Phenytoin Sodium (Phenytoin Sodium Inj 50 Mg/Ml 2 Ml Vial) 100 mg IVP Q8HR [facility] Last Admin: 11/18/20 15:49 Dose: 100 mg Documented by: Senna (Sennosides 8.6 Mg Tab) 17.2 mg PEG/G-TUBE HS [facility] Last Admin: 11/18/20 20:37 Dose: 17.2 mg Documented by: Topiramate (Topiramate 100 Mg Tab) 100 mg PEG/G-TUBE BID [facility] Last Admin: 11/18/20 20:37 Dose: 100 mg Documented by: Past medical history to include: Anoxic brain injury, hypertension, seizure disorder, GERD, MRSA infection, PEG tube for feeding, tracheostomy tube Social history: . Nonverbal. Currently at [facility] on. Tracheostomy tube PEG tube. Family history: Patient cannot tell Physical examination: VITAL SIGNS: 99.3, 84, 20, 1 64 x 82, 100% on trach collar GENERAL: BMI 33.5, laying in bed. EYES: Pupils equal. Conjunctiva normal. HEENT: External appearance of nose and ears normal, oral cavity. Dry. NECK: JVD not raised; tracheostomy in place with some secretions. HEART: First and second heart sounds are normal; no edema. LUNGS: Respiratory rate increased, decreased breath sounds . ABDOMEN: Soft, nontender, liver spleen not palpable, no masses palpable. PSYCH: Unable to assessl. NEUROLOGICAL: Myoclonic jerks present intermittently.. INVESTIGATIONS, reviewed in the clinical context: November 17: Potassium 3.6 creatinine 0.5 for WBC 10.2 hemoglobin 11.1 platelets 253 potassium 3.8 creatinine 0.65 UA positive for leukoesterase, WBC Coronavirus, influenza type A, influenza type B: All not detected EKG tracing personally reviewed by me-no sinus rhythm Chest x-ray film personally reviewed by me-tracheostomy tube. No recent infiltrates [id number] bacilli Assessment and plan: -This is a patient presents with a septic picture. X-rays clear. Has a positive urine. Also possible tracheobronchitis. Patient IV cefepime. -Chronic medical debility, with complete assistance -Acute UTI with cystitis,. Urine culture negative -Anoxic brain injury, chronic follow clinically -Essential hypertension continue with amlodipine, Coreg, hydralazine -Myoclonic jerks with Seizure disorder continue with Keppra, Topamax, phenobarbital. Continues to have intermittent myoclonic jerking. Patient will benefit from a higher level of care. With continuous EEG monitoring. -Chronic tracheostomy and PEG tube , for feeding. Awaiting patient to be transferred to [facility]. Patient has been accepted Total time spent today with 50 minutes with over 30 minutes of discussion
--- NOTE | 2020-11-19 01:12 | PN ---
PROGRESS NOTE DATE OF SERVICE: 11/18/2020 REASON FOR FOLLOWUP: 1. Gram-negative pneumonia. 2. Positive blood cultures, diminished. INTERVAL HISTORY: The patient overall improved. The patient is hemodynamically stable, not on pressor support. FiO2 is currently stable. No vomiting or diarrhea reported by the nursing staff. PHYSICAL EXAMINATION: Blood pressure 133/80 with a pulse of 89, temperature 99.6. She is 100% on trach collar. General description: Middle-aged female lying in bed in no distress. Respiratory system: Unlabored breathing, decreased intensity of breath sounds. No wheeze. Heart S1, S2. Regular rate and rhythm. ABDOMEN: Soft. No tenderness. LABS: Blood culture coagulase negative Staph. Sputum showing Gram-negative bacilli. DIAGNOSTIC IMPRESSION AND PLAN: 1. Patient with in-hospital fever, respiratory distress, possible pneumonia and urinary tract infection. Sputum is showing gram-negative. Patient is covered with Cefazolin. 2. Blood culture with coagulase Staph likely contaminant and vancomycin to be discontinued. MMODL / IJN: [id number] /
[2020-11-19] MEDS: IPRATROPIUM-ALBUTEROL 3 ML NEB INHALATION SCH ×5 (01:27→19:59)
[2020-11-19] MEDS: clonazePAM 1 MG TAB PEG/G-TUBE SCH ×3 (05:23→21:38)
[2020-11-19] MEDS: HEPARIN SODIUM,PORCINE 5,000 UNIT/ML 1 ML VIAL SQ SCH ×3 (05:23→21:39)
[2020-11-19] MEDS: LORazepam 2 MG/ML INJ IV PRN (05:24)
[2020-11-19] MEDS: ARTIFICIAL TEARS-HYPROMELLOSE DROPS 15 ML BTL BOTH EYES SCH ×3 (05:42→22:11)
[2020-11-19 06:32] LABS: Basophils % (A) 0 %; Eosinophils # (A) 0.2 k/uL (0-0.7); Eosinophils % (A) 3 %; HGB 9.8 gm/dL (11.4-16.0); Lymphocytes # (A) 1.3 k/uL (1.0-4.8); Lymphocytes % (A) 18 %; MCH 27.6 pg (25.0-35.0); MCHC 32.8 g/dL (31.0-37.0); MCV 84.3 fL (80.0-100.0); Mean Platelet Volume 8.1; Monocytes # (A) 0.5 k/uL (0-1.0); Monocytes % (A) 7 %; Neutrophils # (A) 5.2 k/uL (1.3-7.7); Neutrophils % (A) 72 %; Platelet Count 209 k/uL (150-450); RBC 3.56 m/uL (3.80-5.40); RDW 15.6 % (11.5-15.5); WBC 7.2 k/uL (3.8-10.6)
[2020-11-19 07:10] LABS: African American GFR (CKD) >90 (>60 ml/min/1.73 sqM); Anion Gap 8 mmol/L; Blood Urea Nitrogen 9 mg/dL (7-17); Calcium 8.5 mg/dL (8.4-10.2); Carbon Dioxide 19 mmol/L (22-30); Chloride 110 mmol/L (98-107); Glucose 97 mg/dL (74-99); Non-African American GFR(CKD) >90 (>60 ml/min/1.73 sqM); Potassium 3.6 mmol/L (3.5-5.1); Sodium 137 mmol/L (137-145)
[2020-11-19] MEDS: hydrALAZINE HCL 50 MG TAB PEG/G-TUBE SCH ×2 (08:14→21:38)
[2020-11-19] MEDS: amLODIPine 10 MG TAB PEG/G-TUBE SCH (08:15)
[2020-11-19] MEDS: ACETAMINOPHEN TAB 325 MG TAB PEG/G-TUBE PRN (08:16)
[2020-11-19] MEDS: FAMOTIDINE 20 MG TAB PEG/G-TUBE SCH ×2 (08:16→21:37)
[2020-11-19] MEDS: FUROSEMIDE 20 MG TAB PEG/G-TUBE SCH (08:16)
[2020-11-19] MEDS: carvediloL 12.5 MG TAB PEG/G-TUBE SCH ×2 (08:17→17:29)
[2020-11-19] MEDS: CEFEPIME 2 GM in SODIUM CHLORIDE 0.9% 100 ML IVPB SCH ×2 (08:17→21:35)
[2020-11-19] MEDS: PHENYTOIN SODIUM INJ 50 MG/ML 2 ML VIAL IVP SCH (08:18)
[2020-11-19] MEDS: levETIRAcetam ORAL SOLN 500 MG/5 ML CUP PEG/G-TUBE SCH ×2 (08:20→22:09)
[2020-11-19] MEDS: TOPIRAMATE 100 MG TAB PEG/G-TUBE SCH ×2 (08:23→22:10)
[2020-11-19] MEDS: SODIUM CHLORIDE 0.9% 1,000 ML IV SCH ×2 (10:31→21:00)
[2020-11-19] MEDS ORDERED: clonazePAM 0.5 MG TAB PEG/G-TUBE SCH (12:30)
[2020-11-19] MEDS ORDERED: DIVALPROEX SPRINKLE 125 MG CAP.SPRINK PEG/G-TUBE STA (12:38)
[2020-11-19] MEDS: clonazePAM 0.5 MG TAB PEG/G-TUBE SCH ×2 (13:06→21:37)
--- NOTE | 2020-11-19 13:17 | P.PN ---
Subjective Progress Note Date: 11/19/20 I spoke with the patient nurse and she stated that the patient when she had very early in the morning she had a lot of twitching of the face and shoulder trunk but after the medication and resolves and then she'll see intermittently. She has not been responsive patient nurse. She has not received any Ativan when necessary in the morning since after the medication it con of the compound down the twitching. She continues to be unresponsive and not following commands. On Dilantin 300 mg daily, Klonopin 1 mg 3 times a day, phenobarbital 64.8 mg one 3 times a day and Keppra 2000 mg 1 tablet twice a day. On Ativan 1 mg every 4 hours as needed. Per the high risk case manager the patient was accepted that to [facility] for long-term EEG and pending bed. Objective - Vital Signs Vital signs: Vital Signs Temp 99.8 F H 11/19/20 07:22 Pulse 99 11/19/20 11:28 Resp 20 11/19/20 11:28 BP 110/84 11/19/20 03:05 Pulse Ox 100 11/19/20 07:30 Intake & Output 11/18/20 11/19/20 11/19/20 18:59 06:59 18:59 Intake Total 500 Output Total 950 600 Balance -450 -600 Weight 74 kg Intake: Tube Feeding 500 Output: Urine 950 600 Other: Voiding Method Indwelling Catheter Indwelling Catheter Indwelling Catheter - Exam Gen.: The patient is lying in bed. She is obese. She is in no acute distress. Resp: Trach collar on 8L oxygen. Gastrointestinal: Has PEG tube. Neurological examination Mental status: The patient is nonverbal. She follows no commands.There is no visual tracking. She does not opens eyes to painful stimuli. She had few intermittent myoclonic jerks of the face. Cranial nerves: Pupils are equal at 5 mm and reactive. Primary gaze is midline. There is no obvious facial asymmetry. Motor: There is no volitional movement. There is no withdrawal from noxious stimulation. Sensation: There is no withdrawal from noxious stimulation. - Labs CBC & Chem 7: 11/19/20 05:45 11/19/20 05:45 Labs: Abnormal Lab Results - Last 24 Hours (Table) 11/19/20 11/19/20 Range/Units 05:45 05:45 RBC 3.56 L (3.80-5.40) m/uL Hgb 9.8 L (11.4-16.0) gm/dL Hct 30.0 L (34.0-46.0) % RDW 15.6 H (11.5-15.5) % Chloride 110 H (98-107) mmol/L Carbon Dioxide 19 L (22-30) mmol/L Creatinine 0.46 L (0.52-1.04) mg/dL Microbiology - Last 24 Hours (Table) 11/16/20 11:44 Blood Culture Gram Stain - Final Blood Blood Culture - Final Coagulase Negative Staph 11/17/20 02:05 Gram Stain - Final Sputum Sputum Culture - Final Pseudomonas aeruginosa Beta Hemolytic Strep Group C 11/16/20 12:31 Gram Stain - Final Sputum Sputum Culture - Final Pseudomonas aeruginosa 11/15/20 18:50 Blood Culture - Preliminary Blood No Growth after 72 hours 11/15/20 18:50 Blood Culture - Preliminary Blood No Growth after 72 hours 11/16/20 11:44 Blood Culture - Preliminary Blood No Growth after 48 hours 11/16/20 11:24 Blood Culture - Preliminary Blood No Growth after 48 hours Assessment and Plan Assessment: 1. 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 Based on the fact the patient is already receiving 4 antiepileptic medicat ions, it is likely that she has had myoclonic seizures previously 3. History of severe anoxic brain injury due to cardiac arrest back in 09/29/2020 4. History of cardiac arrest 5. Acute tracheobronchitis Plan: On Dilantin 300 mg daily, Klonopin 1 mg 3 times a day, phenobarbital 64.8 mg one 3 times a day and Keppra 2000 mg 1 tablet twice a day. I will increase the Kl onopin from the 1 mg 3 times a day to 1.25mg tid. I stopped the Dilantin 300 mg and I will start the patient on Depakote. Depakote loading 20mg/kg (1500mg) then will do maintenace of 500mg bid (we don't have IV but will start sprinkle Depakote). On Ativan 1 mg every 4 hours as needed. Recommend the patient to be transferred to a tertiary facility for long-term EEG as well as the second neurological opinion regarding the patient's condition. Got accepted to [facility] and pending bed. From neurological standpoint the patient's is not realistic regarding understanding her condition. On 11/17/2020, the patient's would not allow me to discuss her care with him. Infection disease is on board. We'll defer the rest of the medical measure to the primary team. The plan was discussed with the patient's nurse. German Sharma MD Neuro-Hospitalist Time with Patient: Less than 30
--- NOTE | 2020-11-19 15:21 | P.PN ---
Subjective Progress Note Date: 11/19/20 Principal diagnosis: Respiratory failure, pneumonia This is a 50-year-old female, -English female, presented to the emergency room yesterday from [facility]. Patient was brought in mostly because of increased shortness of breath, fever, and excessive tracheal secretions noted from her tracheostomy. Chest x-ray showed no evidence of pneumonia, patient had history of multiple types of infections including MRSA infections, and I was asked to see her on consultation. Apparently the patient had history of cardiac arrest back on September 29 2020, and she presented at the time to [facility] unresponsive, CPR was initiated, received multiple rounds of CPR and 2 doses of epinephrine. Patient eventually developed severe anoxic brain injury. Patient was treated with the hypothermia protocol. And she was on mechanical ventilation for quite some time. Patient was eventually a failure to wean, and underwent tracheostomy and PEG tube placement. Eventually she was transferred to [facility] on multiple medications including seizure medications, yesterday, the patient was noted to have significant secretions from her tracheostomy, and she was constantly coughing and requiring suctioning, she was also noted to have low-grade fever, chest x-ray showed no evidence of infiltrate. Patient was admitted and this consult was initiated. No information could be obtained from the patient and no family members around. Information was obtained from records from the [facility] facility where the patient was Progress note dated 11/17/2020. This is a 50-year-old black female, presented to the emergency department, from a detention. She apparently came in was brought in because of increasing shortness of breath, fever, and excessive tracheal secretions noted from her tracheostomy site. Chest x-ray showed no evidence of pneumonia, and the patient was admitted with a diagnosis of tracheobronchitis. 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 She has a prior history of cardiac arrest back on 09/29/2020. She apparently presented to [facility] at that time and she was unresponsive. The patient was started on CPR, and received multiple rounds of CPR and medications, and was thought to have developed severe anoxic brain injury. She did undergo the hypothermia protocol there, and was on mechanical ventilation for some time, status post tracheostomy and PEG tube placement, eventual transfer to one of the [facility] here and [place]. Currently, the patient is unresponsive. Sodium is 138, potassium 3.6, chlorides 109, CO2 20, anion gap 9, BUN 15, and creatinine 0.54. The urinalysis from November 16 is consistent with a urinary tract infection. Microbiology is currently pending or negative including blood urine and sputum sampling. On 11/19/2019 patient seen in follow-up on medical floor. Patient remains poorly responsive, does not open eyes to voice, does not track with eyes, she is breathing spontaneously, she is on 40% trach collar, pulse ox 100%, low-grade fever, T-max in the last 24 hours is 100.5F. Patient remains on Maxipime and vancomycin. Her sputum and blood culture are positive, her sputum culture is positive for gram-negative bacilli, final culture is pending, blood culture from 11/16/2020 showed coagulase-negative staph, likely contaminant. Blood culture from the same date has shown no growth at the 48 hour ofelia. Her urinalysis also suggest possibility of underlying urinary tract infection with moderate lupus, increased white blood cells. Her COVID 19 and influenza screen were negative. Patient is on tube feedings, Jevity at 50 ML per hour, sounds are diminished, with a few scattered rhonchi. Patient appears to be in no acute distress, she is being suctioned endotracheally as needed. She is being followed [id number] she is on a combination of Dilantin and Ativan for possibility of underlying seizures. On 11/20/2019 patient seen in follow-up on medical floor, her mentation remains about the same, she does not follow any verbal commands. She remains on 40% trach collar her pulse ox percent, she's had low-grade fevers, with a T-max of 100.5F, her sputum culture was positive for pseudomonas aeruginosa, and beta- hemolytic strep group C. Patient's antibiotic coverage was switched to cefepime. ID service is following. Patient remains on Ativan, Depakote, Keppra and Dilantin, neurology is following. As determined that continuous EEG monitoring was recommended by neurology, and currently discharge planning is in progress for transfer to tertiary care facility with continuous EEG monitoring in the neuro ICU Objective - Vital Signs Vital signs: Vital Signs Temp 98.6 F 11/19/20 12:50 Pulse 88 11/19/20 12:50 Resp 22 11/19/20 12:50 BP 143/78 11/19/20 12:50 Pulse Ox 100 11/19/20 07:30 Intake & Output 11/18/20 11/19/20 11/19/20 18:59 06:59 18:59 Intake Total 500 Output Total 950 600 Balance -450 -600 Weight 74 kg Intake: Tube Feeding 500 Output: Urine 950 600 Other: Voiding Method Indwelling Catheter Indwelling Catheter Indwelling Catheter - Exam GENERAL EXAM: Unresponsive, 50-year-old -English female, with a recent history of anoxic brain injury related to cardiac arrest, on 40% trach collar does not follow commands, does not track with eyes, drowsy, comfortable in no apparent distress. HEAD: Normocephalic/atraumatic. EYES: Normal reaction of pupils, equal size. Conjunctiva pink, sclera white. NOSE: Clear with pink turbinates. THROAT: No erythema or exudates. NECK: No masses, no JVD, no thyroid enlargement, no adenopathy. Midline tracheotomy, and patient is connected to humidified oxygen with FiO2 of 40%, she has copious yellow and green secretions out of the tracheostomy CHEST: No chest wall deformity. Symmetrical expansion. LUNGS: Equal air entry with diffuse rhonchi CVS: Regular rate and rhythm, normal S1 and S2, no gallops, no murmurs, no rubs ABDOMEN: Soft, nontender. No hepatosplenomegaly, normal bowel sounds, no guarding or rigidity. Left upper abdominal quadrant PEG tube in place, patient is receiving Jevity tube feedings currently at 50 ML per hour EXTREMITIES: No clubbing, no edema, no cyanosis, 2+ pulses and upper and lower extremities. MUSCULOSKELETAL: Muscle strength and tone normal. SPINE: No scoliosis or deformity SKIN: No rashes CENTRAL NERVOUS SYSTEM: Drowsy, does not follow commands, does not open eyes to voice, has a recent history of anoxic brain injury No focal deficits, tone is normal in all 4 extremities. - Labs CBC & Chem 7: 11/19/20 05:45 11/19/20 05:45 Labs: Abnormal Lab Results - Last 24 Hours (Table) 11/19/20 11/19/20 Range/Units 05:45 05:45 RBC 3.56 L (3.80-5.40) m/uL Hgb 9.8 L (11.4-16.0) gm/dL Hct 30.0 L (34.0-46.0) % RDW 15.6 H (11.5-15.5) % Chloride 110 H (98-107) mmol/L Carbon Dioxide 19 L (22-30) mmol/L Creatinine 0.46 L (0.52-1.04) mg/dL Microbiology - Last 24 Hours (Table) 11/16/20 11:44 Blood Culture - Preliminary Blood No Growth after 72 hours 11/16/20 11:24 Blood Culture - Preliminary Blood No Growth after 72 hours 11/16/20 11:44 Blood Culture Gram Stain - Final Blood Blood Culture - Final Coagulase Negative Staph 11/17/20 02:05 Gram Stain - Final Sputum Sputum Culture - Final Pseudomonas aeruginosa Beta Hemolytic Strep Group C 11/16/20 12:31 Gram Stain - Final Sputum Sputum Culture - Final Pseudomonas aeruginosa 11/15/20 18:50 Blood Culture - Preliminary Blood No Growth after 72 hours 11/15/20 18:50 Blood Culture - Preliminary Blood No Growth after 72 hours Assessment and Plan Plan: Assessment: #1. Acute tracheobronchitis, with sputum cultures positive for pseudomonas aeruginosa, and beta hemolytic strep group C #2. History of severe anoxic brain injury secondary to cardiac arrest on 09/29/2020 status post tracheostomy and PEG tube placement #3. Seizure disorder secondary to anoxic brain injury currently on a combination of Keppra, Dilantin and Ativan, and Depakote #4. Myoclonic jerks or seizure activity, followed by neurology #5. History of cardiac arrest #6. History of benign essential hypertension #7. Status post PEG tube placement for nutritional support Plan: Continue antibiotics per ID service recommendations, continue aspiration preca utions, endotracheal suctioning is needed, discharge planning is in progress for transfer to [facility] care facility with long-term EEG monitoring per neurology recommendations. I performed a history & physical examination of the patient and discussed their management with my nurse practitioner, Verena Jimenez. I reviewed the nurse practitioner's note and agree with the documented findings and plan of care. Lung sounds are positive for diffuse rhonchi. The findings and the impression was discussed with the patient. I attest to the documentation by the nurse practitioner. Time with Patient: Less than 30
--- NOTE | 2020-11-19 18:01 | PN ---
PROGRESS NOTE DATE OF SERVICE: 11/19/2020 REASON FOR FOLLOWUP: Gram-negative pneumonia. INTERVAL HISTORY: The patient is currently afebrile. The patient is breathing comfortably on trach collar. The patient is hemodynamically stable. No vomiting or any diarrhea has been reported. PHYSICAL EXAMINATION: Blood pressure 143/78 with a pulse of 88, temperature 98.6. General description is a middle-aged female lying in bed in no distress. RESPIRATORY SYSTEM: Unlabored breathing with decreased intensity of breath sounds. No wheeze. HEART: S1, S2. Regular rate and rhythm. ABDOMEN: Soft. No tenderness. LABS: Hemoglobin is 9.8, white count 7.2, BUN of 9, creatinine 0.46. Sputum has been pseudomonas. DIAGNOSTIC IMPRESSION AND PLAN: Patient with pseudomonas pneumonia. Patient's fever has resolved. Covered with cefepime. Blood culture with coagulase-negative staph, likely skin contaminant, and no need for further workup. Vancomycin has been discontinued. MMODL / IJN: [id number] /
[2020-11-19] MEDS: SENNOSIDES 8.6 MG TAB PEG/G-TUBE SCH (22:10)
[2020-11-19] MEDS: BACITRACIN ZINC 500 UNIT/GM OINT 28.4 GM TUBE TOPICAL SCH (22:11)
[2020-11-19] MEDS: DIVALPROEX SPRINKLE 125 MG CAP.SPRINK PO SCH (23:05)
--- NOTE | 2020-11-19 23:22 | P.PN ---
Progress Note - Text Progress Note Date: 11/19/20 Chief Complaint: Fever History of presenting complaint: This is a 50-year-old patient, who is a resident of [facility] being followed by Dr. Packer. Patient herself is nonverbal. History from the transfer notes and per the nurses obtained. patient had a cardiac arrest and was transferred to [facility]. From there [facility] and from there she was transferred to [facility] on. Patient has a tracheostomy tube and a PEG tube. Chronic stable medical conditions include anoxic brain injury, hypertension, seizure disorder, GERD. History of MRSA. Maybe at her baseline she opens her eyes. EMS was called out as patient was noted to have a fever. Transferred to the hospital. Patient normally has a trach: Collar at 21%. Patient also noted to have some jerking movements. More so off the abdomen. Some around the mouth. She was seen initially by neurologist Dr. Herring. Patient felt to have myoclonic jerks. Phenytoin was added after getting a bolus. Patient is requiring frequent Ativan. As myoclonic jerks persist. Had a lengthy discussion with Dr. Espinoza from neurology. Given that patient is on multiple medication not responding. Patient will benefit from continuous EEG monitoring system , requiring higher level of care. [facility]don hospitalist has accepted the patient. Today-continues to have intermittent myoclonic jerks. Tolerating 2 feeding. Remains unresponsive. Review of systems: Patient is not verbal Active Medications Acetaminophen (Acetaminophen Tab 325 Mg Tab) 650 mg PEG/G-TUBE Q6H PRN PRN Reason: Mild Pain Last Admin: 11/19/20 08:16 Dose: 650 mg Documented by: Albuterol/Ipratropium (Ipratropium-Albuterol 3 Ml Neb) 3 ml INHALATION RT-Q6H [facility] Last Admin: 11/19/20 19:59 Dose: 3 ml Documented by: Amlodipine Besylate (Amlodipine 10 Mg Tab) 10 mg PEG/G-TUBE DAILY [facility] Last Admin: 11/19/20 08:15 Dose: 10 mg Documented by: Artificial Tears (Artificial Tears-Hypromellose Drops 15 Ml Btl) 2 drops BOTH EYES TID@0500,1300,2100 [facility] Last Admin: 11/19/20 22:11 Dose: 2 drops Documented by: Bacitracin (Bacitracin Zinc 500 Unit/Gm Oint 28.4 Gm Tube) 1 applic TOPICAL HS [facility] Last Admin: 11/19/20 22:11 Dose: 1 applic Documented by: Bisacodyl (Bisacodyl 10 Mg Supp) 10 mg RECTAL DAILY PRN PRN Reason: Constipation Carvedilol (Carvedilol 12.5 Mg Tab) 12.5 mg PEG/G-TUBE AC-BID [facility] Last Admin: 11/19/20 17:29 Dose: 12.5 mg Documented by: Clonazepam (Clonazepam 1 Mg Tab) 1 mg PEG/G-TUBE TID@0500,1300,2100 [facility] Last Admin: 11/19/20 21:38 Dose: 1 mg Documented by: Clonazepam (Clonazepam 0.5 Mg Tab) 0.25 mg PEG/G-TUBE TID@0500,1300,2100 [facility] Last Admin: 11/19/20 21:37 Dose: 0.25 mg Documented by: Divalproex Sodium (Divalproex Sprinkle 125 Mg Cap.Sprink) 500 mg PO Q12H [facility] Last Admin: 11/19/20 23:05 Dose: 500 mg Documented by: Famotidine (Famotidine 20 Mg Tab) 20 mg PEG/G-TUBE BID [facility] Last Admin: 11/19/20 21:37 Dose: 20 mg Documented by: Furosemide (Furosemide 20 Mg Tab) 20 mg PEG/G-TUBE DAILY [facility] Last Admin: 11/19/20 08:16 Dose: 20 mg Documented by: Heparin Sodium (Porcine) (Heparin Sodium,Porcine 5,000 Unit/Ml 1 Ml Vial) 5,000 unit SQ TID@0500,1300,2100 [facility] Last Admin: 11/19/20 21:39 Dose: 5,000 unit Documented by: Hydralazine HCl (Hydralazine Hcl 50 Mg Tab) 50 mg PEG/G-TUBE BID [facility] Last Admin: 11/19/20 21:38 Dose: 50 mg Documented by: Sodium Chloride (Saline 0.9%) 1,000 mls @ 75 mls/hr IV .[id number] [facility] Last Admin: 11/19/20 21:00 Dose: 75 mls/hr Documented by: Cefepime HCl 2 gm/ Sodium (Chloride) 100 mls @ 25 mls/hr IVPB Q12HR [facility] Last Admin: 11/19/20 21:35 Dose: 25 mls/hr Documented by: Levetiracetam (Levetiracetam Oral Soln 500 Mg/5 Ml Cup) 2,000 mg PEG/G-TUBE BID [facility] Last Admin: 11/19/20 22:09 Dose: 2,000 mg Documented by: Lorazepam (Lorazepam 2 Mg/Ml Inj) 1 mg IV Q4HR PRN PRN Reason: Seizures Last Admin: 11/19/20 05:24 Dose: 1 mg Documented by: Naloxone HCl (Naloxone 0.4 Mg/Ml 1 Ml Vial) 0.2 mg IV Q2M PRN PRN Reason: Opioid Reversal Phenobarbital (Phenobarbital 32.4 Mg Tab) 64.8 mg PEG/G-TUBE TID@0500,1300,2100 [facility] Last Admin: 11/19/20 21:37 Dose: 64.8 mg Documented by: Senna (Sennosides 8.6 Mg Tab) 17.2 mg PEG/G-TUBE HS [facility] Last Admin: 11/19/20 22:10 Dose: 17.2 mg Documented by: Topiramate (Topiramate 100 Mg Tab) 100 mg PEG/G-TUBE BID [facility] Last Admin: 11/19/20 22:10 Dose: 100 mg Documented by: Past medical history to include: Anoxic brain injury, hypertension, seizure disorder, GERD, MRSA infection, PEG tube for feeding, tracheostomy tube Social history: . Nonverbal. Currently at [facility] on. Tracheostomy tube PEG tube. Family history: Patient cannot tell Physical examination: VITAL SIGNS: 98.6, 66, 18, 132/68, 96% room air GENERAL:, laying in bed. Lethargic. Eyes closed EYES: Pupils equal. Conjunctiva normal. HEENT: External appearance of nose and ears normal, oral cavity. Dry. NECK: JVD not raised; tracheostomy in place with some secretions. HEART: First and second heart sounds are normal; no edema. LUNGS: Respiratory rate increased, decreased breath sounds . ABDOMEN: Soft, nontender, liver spleen not palpable, no masses palpable. PSYCH: Unable to assessl. NEUROLOGICAL: Myoclonic jerks present intermittently.. INVESTIGATIONS, reviewed in the clinical context: November 19: WBC 7.2 hemoglobin 9.8 potassium 3.6 creatinine 0.46 November 17: Potassium 3.6 creatinine 0.5 for WBC 10.2 hemoglobin 11.1 platelets 253 potassium 3.8 creatinine 0.65 UA positive for leukoesterase, WBC Coronavirus, influenza type A, influenza type B: All not detected EKG tracing personally reviewed by me-no sinus rhythm Chest x-ray film personally reviewed by me-tracheostomy tube. No recent infiltrates Ihhcpn-facg-dmbtfulz bacilli Assessment and plan: -Sepsis. X-rays clear. Acute tracheobronchitis and pneumonia-sputum positive for pseudomonas aeruginosa and beta hemolytic strep group C. Patient IV cefepime. -Chronic medical debility, with complete assistance -Acute UTI with cystitis,. Urine culture negative -Anoxic brain injury, following cardiac arrest on 09/29/2020. chronic follow clinically -Essential hypertension continue with amlodipine, Coreg, hydralazine -Myoclonic jerks with Seizure disorder continue with Keppra, Topamax, phenobarbital. Continues to have intermittent myoclonic jerking. Patient will benefit from a higher level of care. With continuous EEG monitoring. -Chronic tracheostomy and PEG tube , for feeding. Awaiting patient to be transferred to [facility]. Patient has been accepted
[2020-11-20] MEDS: IPRATROPIUM-ALBUTEROL 3 ML NEB INHALATION SCH ×4 (01:10→20:15)
[2020-11-20] MEDS: ACETAMINOPHEN TAB 325 MG TAB PEG/G-TUBE PRN ×2 (02:44→08:46)
[2020-11-20] MEDS: HEPARIN SODIUM,PORCINE 5,000 UNIT/ML 1 ML VIAL SQ SCH ×3 (05:32→21:05)
[2020-11-20] MEDS: clonazePAM 1 MG TAB PEG/G-TUBE SCH ×3 (05:32→21:04)
[2020-11-20] MEDS: ARTIFICIAL TEARS-HYPROMELLOSE DROPS 15 ML BTL BOTH EYES SCH ×3 (05:33→21:06)
[2020-11-20] MEDS: clonazePAM 0.5 MG TAB PEG/G-TUBE SCH ×3 (05:33→21:04)
[2020-11-20] MEDS: FAMOTIDINE 20 MG TAB PEG/G-TUBE SCH ×2 (08:46→21:05)
[2020-11-20] MEDS: hydrALAZINE HCL 50 MG TAB PEG/G-TUBE SCH ×2 (08:47→21:11)
[2020-11-20] MEDS: TOPIRAMATE 100 MG TAB PEG/G-TUBE SCH ×2 (08:47→21:04)
[2020-11-20] MEDS: CEFEPIME 2 GM in SODIUM CHLORIDE 0.9% 100 ML IVPB SCH ×2 (08:47→21:05)
[2020-11-20] MEDS: FUROSEMIDE 20 MG TAB PEG/G-TUBE SCH (08:47)
[2020-11-20] MEDS: levETIRAcetam ORAL SOLN 500 MG/5 ML CUP PEG/G-TUBE SCH ×2 (08:47→21:05)
[2020-11-20] MEDS: carvediloL 12.5 MG TAB PEG/G-TUBE SCH ×3 (08:48→21:04)
[2020-11-20] MEDS: amLODIPine 10 MG TAB PEG/G-TUBE SCH (08:48)
--- NOTE | 2020-11-20 09:25 | P.PN ---
Subjective Progress Note Date: 11/20/20 I spoke with the patient nurse and she stated that patient continues to have intermintent jerks face, shoulder and trunk but again but improved compared to two days ago. Pending for a bed at [facility]. On Depakote 500mg 1 tab bid, Klonopin 1.25 mg 3 times a day, phenobarbital 64.8 mg one 3 times a day and Keppra 2000 mg 1 tablet twice a day. On Ativan 1 mg every 4 hours as needed. Per the special education case manager pending a bed at [facility] facility for long-term EEG. Objective - Vital Signs Vital signs: Vital Signs Temp 99.5 F 11/20/20 07:13 Pulse 88 11/20/20 07:19 Resp 18 11/20/20 07:13 BP 176/94 11/20/20 07:13 Pulse Ox 98 11/20/20 07:13 Intake & Output 11/19/20 11/20/20 11/20/20 18:59 06:59 18:59 Intake Total 810 Output Total 900 Balance -90 Weight 85 kg Intake: Tube Feeding 660 Other 150 Output: Urine 900 Uretheral (Snider) 900 Other: Voiding Method Indwelling Catheter Indwelling Catheter Indwelling Catheter # Voids 350 - Exam Gen.: The patient is lying in bed. She is obese. She is in no acute distress. Resp: Trach collar on 8L oxygen. Gastrointestinal: Has PEG tube. Neurological examination Mental status: The patient is nonverbal. She follows no commands.There is no visual tracking. She does not opens eyes to painful stimuli. She had intermittent myoclonic jerks of the face, shoulder and trunk. Cranial nerves: Pupils are equal at 5 mm and reactive. Primary gaze is midline. There is no obvious facial asymmetry. Motor: There is no volitional movement. There is no withdrawal from noxious stimulation. Sensation: There is no withdrawal from noxious stimulation. - Labs CBC & Chem 7: 11/19/20 05:45 11/20/20 05:44 Labs: Microbiology - Last 24 Hours (Table) 11/15/20 18:50 Blood Culture - Preliminary Blood No Growth after 96 hours 11/15/20 18:50 Blood Culture - Preliminary Blood No Growth after 96 hours 11/16/20 11:44 Blood Culture - Preliminary Blood No Growth after 72 hours 11/16/20 11:24 Blood Culture - Preliminary Blood No Growth after 72 hours 11/16/20 11:44 Blood Culture Gram Stain - Final Blood Blood Culture - Final Coagulase Negative Staph 11/17/20 02:05 Gram Stain - Final Sputum Sputum Culture - Final Pseudomonas aeruginosa Beta Hemolytic Strep Group C 11/16/20 12:31 Gram Stain - Final Sputum Sputum Culture - Final Pseudomonas aeruginosa Assessment and Plan Assessment: 1. 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 Based on the fact the patient is already receiving 4 antiepileptic medications, it is likely that she has had myoclonic seizures previously 3. History of severe anoxic brain injury due to cardiac arrest back in 09/29/2020 4. 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 History of cardiac arrest 6. Acute tracheobronchitis Plan: Continue Depakote 500mg 1 tab bid, Klonopin 1.25 mg 3 times a day, phenobarbital 64.8 mg one 3 times a day and Keppra 2000 mg 1 tablet twice a day. On Ativan 1 mg every 4 hours as needed. I ordered AST and ALT levels. Ordered routine EEG. Recommend the patient to be transferred to a tertiary facility for long-term EEG as well as the second neurological opinion regarding the patient's condition. Got accepted to [facility] and pending bed. From neurological standpoint the patient's is not realistic regarding understanding her condition. Infection disease is on board. We'll defer the rest of the medical measure to the primary team. UPDATE: EEG (Prelim report): Abnormal routine EEG. The background slowing is suggestive of moderate encephalopathy. There is occasional to frequent generalized spike/slow wave which increases risk of generalized epilepsy. There is significant myogenic artifact towards end of EEG study. I called the patient's (Dwayne) via phone and I had a lengthy conversation with the patient regarding the patient's condition and I notified him that the patient continues to have these myoclonic jerks. I notified him that she is on 4 different seizure medication as well as Ativan when necessary but he stated that her jerking is much dramatically improved compared to when she initially had him. I notified him that the patient's prognosis seems poor specialty she's trached, pad, not following any commands or responsive. The patient's stated that he already her that from me and interested in hearing it. I notified him that when the process of transferring the patient for long-term EEG as well as transfer for a second neurological opinion. Patient stated that he wants her to be taken back to the halfway. He notified me that he'll be there at bedside to talk further. Around 3:15pm the patient's was at bedside and upon the seen him he stated that he does not want to talk to me and he does not want any issues to be addressed and he wants her to be taken back to the nursing facility. I spoke with the patient's attending regarding this and I notified him that in my opinion I do not agree with the patient's wishes. Patient needs to be transferred to the a different facility for long-term EEG. If the patient is persistent of not accept and it then I highly recommend that ethics to be involved. The plan was discussed with the patient's , primary attending and patient's nurse. German Sharma MD Neuro-Hospitalist Time with Patient: Greater than 30
[2020-11-20 09:51] LABS: C Reactive Protein 19.4 mg/dL (0.0-0.8); Non-African American GFR(CKD) 111.3 (60.0-200.0)
[2020-11-20 11:23] VITALS: BMI 28.5
[2020-11-20] MEDS: DIVALPROEX SPRINKLE 125 MG CAP.SPRINK PO SCH ×2 (14:34→21:05)
--- NOTE | 2020-11-20 14:51 | EEG ---
ELECTROENCEPHALOGRAM REPORT DATE OF SERVICE: 11/20/2020 CLINICAL HISTORY: This is a 50-year-old woman that suffered an anoxic brain injury on September, and as a result, has been having myoclonic jerks since then. The video EEG is obtained to evaluate for seizure and epileptiform activity. RELEVANT MEDICATION: Patient is on Keppra, Depakote, Klonopin, phenobarbital and Ativan p.r.n. EEG TYPE: A routine 21 channel EEG is obtained with video using the 10/20 electrode placement system. DESCRIPTION: Wakefulness is obtained. During wakefulness, there is a posterior dominant rhythm of low to moderate voltage, well modulated of 5.5-6.5 hertz activity. There is no physiological stage II sleep. There is no focal slowing. There is significant diffuse myogenic artifact, especially during the last half of the study. Interictal and ictal: Patient has occasional to frequent generalized moderate voltage sharp/spike and slow waves without evolution to seizure. ACTIVATION PROCEDURES: Photic stimulation did not evoke a posterior driving response. Hyerventillation is not performed. CLINICAL INTERPRETATION: This is an abnormal routine EEG. The background slowing is suggestive of moderate encephalopathy of unspecified etiology. There are occasional to frequent generalized sharp/spike and slow waves which increases the risk of generalized epilepsy. There is significant myogenic artifact toward end of study. Clinical correlation is recommended. RECOMMENDATION: I highly recommend for a long-term EEG. MMYAHAIRA / DENISEN: [id number] / MTDPio
--- NOTE | 2020-11-20 15:43 | P.PN ---
Subjective Progress Note Date: 11/20/20 Principal diagnosis: Respiratory fire, pneumonia. This is a 50-year-old female, -[place] female, presented to the emergency room yesterday from [facility]. Patient was brought in mostly because of increased shortness of breath, fever, and excessive tracheal secretions noted fr om her tracheostomy. Chest x-ray showed no evidence of pneumonia, patient had history of multiple types of infections including MRSA infections, and I was asked to see her on consultation. Apparently the patient had history of cardiac arrest back on September 29 2020, and she presented at the time to [facility] unresponsive, CPR was initiated, received multiple rounds of CPR and 2 doses of epinephrine. Patient eventually developed severe anoxic brain injury. Patient was treated with the hypothermia protocol. And she was on mechanical ventilation for quite some time. Patient was eventually a failure to wean, and underwent tracheostomy and PEG tube placement. Eventually she was transferred to [facility] on multiple medications including seizure medications, yesterday, the patient was noted to have significant secretions from her tracheostomy, and she was constantly coughing and requiring suctioning, she was also noted to have low-grade fever, chest x-ray showed no evidence of infiltrate. Patient was admitted and this consult was initiated. No information could be obtained from the patient and no family members around. Information was obtained from records from the [facility] facility where the patient was Progress note dated 11/17/2020. This is a 50-year-old black female, presented to the emergency department, from a custodial. She apparently came in was brought in because of increasing shortness of breath, fever, and excessive tracheal secretions noted from her tracheostomy site. Chest x-ray showed no evidence of pneumonia, and the patient was admitted with a diagnosis of tracheobronchitis. 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 She has a prior history of cardiac arrest back on 09/29/2020. She apparently presented to [facility] at that time and she was unresponsive. The patient was started on CPR, and received multiple rounds of CPR and medications, and was thought to have developed severe anoxic brain injury. She did undergo the hypothermia protocol there, and was on mechanical ventilation for some time, status post tracheostomy and PEG tube placement, eventual transfer to one of [facility] [place]. Currently, the patient is unresponsive. Sodium is 138, potassium 3.6, chlorides 109, CO2 20, anion gap 9, BUN 15, and creatinine 0.54. The urinalysis from November 16 is consistent with a urinary tract infection. Microbiology is currently pending or negative including blood urine and sputum sampling. Progress note dated 11/20/2020. 50-year-old black female, with a history of anoxic brain injury. She initially presented to [facility] with cardiac arrest. That was back on 09/29/2020. She received CPR, multiple rounds of cardiopulmonary resuscitation, and controlled hypothermia. Unfortunately, she sustained significant anoxic brain injury, and underwent a tracheostomy and PEG tube placement. She was recently transferred from a custodial, the [facility]. Sputum samples from November 16 and November 17 show evidence of pseudomonas aeruginosa. She will likely need IV antibiotics for a period of time. She is currently on cefepime, and will need a midline/PICC line. She is awaiting discharge. No bed is available as yet. Her most recent C-reactive protein is 19.4, with a pro-calcitonin level 0.07. She is unresponsive as she has been the last number of days. Objective - Vital Signs Vital signs: Vital Signs Temp 99.3 F 11/20/20 10:39 Pulse 86 11/20/20 10:39 Resp 18 11/20/20 10:39 BP 133/73 11/20/20 10:39 Pulse Ox 100 11/20/20 10:39 Intake & Output 11/19/20 11/20/20 11/20/20 18:59 06:59 18:59 Intake Total 810 Output Total 900 Balance -90 Weight 85 kg 85 kg Intake: Tube Feeding 660 Other 150 Output: Urine 900 Uretheral (Snider) 900 Other: Voiding Method Indwelling Catheter Indwelling Catheter Indwelling Catheter # Voids 350 - Exam No acute distress, unresponsive. The patient has a midline tracheostomy. She has a 40% trach collar. HEENT examination is grossly unremarkable. Mucous membranes are dry. Neck supple. Full range of motion. No adenopathy thyromegaly or neck vein distention. Midline tracheostomy is noted. Cardiovascular examination reveals regular rhythm rate. S1-S2 normal. No S3 or S4. No discernible murmur noted. Heart sounds are distant. Heart rate 86 bpm. Lungs reveal coarse bilateral rhonchi. Breath sounds equal. No wheezes or crackles. Lung exam is unchanged. Abdomen soft bowel sounds are heard. No masses or tenderness. PEG tube noted. Extremities are intact. No cyanosis clubbing or edema. Skin is without rash or lesion. Neurologic examination reveals a patient who is unresponsive secondary to anoxic brain injury. - Labs CBC & Chem 7: 11/19/20 05:45 11/20/20 05:44 Labs: Abnormal Lab Results - Last 24 Hours (Table) 11/20/20 Range/Units 05:44 Creatinine 0.5 L (0.6-1.5) mg/dL C-Reactive Protein 19.4 H (0.0-0.8) mg/dL Microbiology - Last 24 Hours (Table) 11/16/20 11:24 Blood Culture - Preliminary Blood No Growth after 96 hours 11/16/20 11:44 Blood Culture - Preliminary Blood No Growth after 96 hours 11/15/20 18:50 Blood Culture - Preliminary Blood No Growth after 96 hours 11/15/20 18:50 Blood Culture - Preliminary Blood No Growth after 96 hours Assessment and Plan Assessment: Acute tracheobronchitis, doubt pneumonia. History of severe anoxic brain injury secondary to cardiac arrest, back on 09/29/2020. Pseudomonas aeruginosa tracheobronchitis/bronchopneumonia. History of seizure disorder, secondary to anoxic brain injury. Possible myoclonic jerks or seizure activity, to be seen by neurology. History of cardiac arrest. History of benign essential hypertension. Status post PEG tube placement for nutritional support. Status post tracheostomy tube placement for failure to wean from mechanical v entilation. Plan: Plan dated 11/20/2020. We'll continue with supportive measures. The patient is currently on cefepime for her infections. She grew out pseudomonas aeruginosa from her sputum. The patient will need a more permanent IV access for long-term antibiotics. She is waiting for a bed at a specialized custodial. Her prognosis is extremely poor. No additional recommendations are made. We will continue to follow. Time with Patient: Less than 30
[2020-11-20] MEDS: SODIUM CHLORIDE 0.9% 1,000 ML IV SCH ×2 (20:15→21:11)
[2020-11-20] MEDS: SENNOSIDES 8.6 MG TAB PEG/G-TUBE SCH (21:04)
[2020-11-20] MEDS: BACITRACIN ZINC 500 UNIT/GM OINT 28.4 GM TUBE TOPICAL SCH (21:06)
--- NOTE | 2020-11-20 23:06 | PN ---
PROGRESS NOTE DATE OF SERVICE: 11/20/2020 REASON FOR FOLLOWUP: Pneumonia. INTERVAL HISTORY: The patient is currently afebrile. The patient is breathing comfortably. The patient is hemodynamically stable. FiO2 is currently stable. No vomiting or diarrhea reported by nursing staff. PHYSICAL EXAMINATION: Blood pressure 153/76, pulse of 80, temperature 99.5. She is 100% on trach collar. General description is a middle-aged female lying in bed in no distress. RESPIRATORY SYSTEM: Unlabored breathing with decreased breath sounds at the base. No wheeze. HEART: S1, S2. Regular rate and rhythm. ABDOMEN: Soft. No tenderness. LABS: Hemoglobin is 9.3, white count 7.2, BUN of 9, creatinine 0.46. Sputum has been pseudomonas and strep. DIAGNOSTIC IMPRESSION AND PLAN: Patient admitted to hospital with fever concerning for pneumonia and urinary tract infection. Urine came back negative. Blood cultures with coagulase-negative Staph, likely contaminant. Sputum has been pseudomonas and streptococcus. [facility] to finish her course of therapy. Continue with supportive care. MMODL / IJN: [id number] /
--- NOTE | 2020-11-20 23:12 | P.PN ---
Progress Note - Text Progress Note Date: 11/20/20 Chief Complaint: Fever History of presenting complaint: This is a 50-year-old patient, who is a resident of [facility] being followed by Dr. Packer. Patient herself is nonverbal. History from the transfer notes and per the nurses obtained. patient had a cardiac arrest and was transferred to [facility]. From there she was transferred to [facility] and from there she was transferred to [facility] on. Patient has a tracheostomy tube and a PEG tube. Chronic stable medical conditions include anoxic brain injury, hypertension, seizure disorder, GERD. History of MRSA. Maybe at her baseline she opens her eyes. EMS was called out as patient was noted to have a fever. Transferred to the hospital. Patient normally has a trach: Collar at 21%. Patient also noted to have some jerking movements. More so off the abdomen. Some around the mouth. She was seen initially by neurologist Dr. Herring. Patient felt to have myoclonic jerks. Phenytoin was added after getting a bolus. Patient is requiring frequent Ativan. As myoclonic jerks persist. Had a lengthy discussion with Dr. Sharma from neurology. Given that patient is on multiple medication not responding. Patient will benefit from continuous EEG monitoring system , requiring higher level of care. [facility] hospitalist has accepted the patient. Today-some decrease in episodes of myoclonic jerks. Dr. Sharma. Repeat EEG today. Frequent generalized sharp spike and slow wave. Increase the risk of epilepsy. He discussed the care with me. We decided that then the best interest the patient would be to go to a higher level of care. Patient's husb and had, had earlier in the day indicated that he wanted the patient to go back to [facility]. Care was communicated to him a few times some [place] that the workup based on the right ear. Otherwise patient return back to the hospital right away if not treated properly. Review of systems: Patient is not verbal Active Medications Acetaminophen (Acetaminophen Tab 325 Mg Tab) 650 mg PEG/G-TUBE Q6H PRN PRN Reason: Mild Pain Last Admin: 11/20/20 08:46 Dose: 650 mg Documented by: Albuterol/Ipratropium (Ipratropium-Albuterol 3 Ml Neb) 3 ml INHALATION RT-Q6H MJ Last Admin: 11/20/20 20:15 Dose: 3 ml Documented by: Amlodipine Besylate (Amlodipine 10 Mg Tab) 10 mg PEG/G-TUBE DAILY [facility] Last Admin: 11/20/20 08:48 Dose: 10 mg Documented by: Artificial Tears (Artificial Tears-Hypromellose Drops 15 Ml Btl) 2 drops BOTH EYES TID@0500,1300,2100 [facility] Last Admin: 11/20/20 21:06 Dose: 2 drops Documented by: Bacitracin (Bacitracin Zinc 500 Unit/Gm Oint 28.4 Gm Tube) 1 applic TOPICAL HS [facility] Last Admin: 11/20/20 21:06 Dose: 1 applic Documented by: Bisacodyl (Bisacodyl 10 Mg Supp) 10 mg RECTAL DAILY PRN PRN Reason: Constipation Carvedilol (Carvedilol 12.5 Mg Tab) 12.5 mg PEG/G-TUBE BID [facility] Last Admin: 11/20/20 21:04 Dose: 12.5 mg Documented by: Clonazepam (Clonazepam 1 Mg Tab) 1 mg PEG/G-TUBE TID@0500,1300,2100 [facility] Last Admin: 11/20/20 21:04 Dose: 1 mg Documented by: Clonazepam (Clonazepam 0.5 Mg Tab) 0.25 mg PEG/G-TUBE TID@0500,1300,2100 [facility] Last Admin: 11/20/20 21:04 Dose: 0.25 mg Documented by: Divalproex Sodium (Divalproex Sprinkle 125 Mg Cap.Sprink) 750 mg PO Q12H [facility] Last Admin: 11/20/20 21:05 Dose: 750 mg Documented by: Famotidine (Famotidine 20 Mg Tab) 20 mg PEG/G-TUBE BID [facility] Last Admin: 11/20/20 21:05 Dose: 20 mg Documented by: Furosemide (Furosemide 20 Mg Tab) 20 mg PEG/G-TUBE DAILY [facility] Last Admin: 11/20/20 08:47 Dose: 20 mg Documented by: Heparin Sodium (Porcine) (Heparin Sodium,Porcine 5,000 Unit/Ml 1 Ml Vial) 5,000 unit SQ TID@0500,1300,2100 [facility] Last Admin: 11/20/20 21:05 Dose: 5,000 unit Documented by: Hydralazine HCl (Hydralazine Hcl 50 Mg Tab) 50 mg PEG/G-TUBE BID [facility] Last Admin: 11/20/20 21:11 Dose: 50 mg Documented by: Sodium Chloride (Saline 0.9%) 1,000 mls @ 75 mls/hr IV .[id number] [facility] Last Admin: 11/20/20 21:11 Dose: Not Given Documented by: Cefepime HCl 2 gm/ Sodium (Chloride) 100 mls @ 25 mls/hr IVPB Q12HR [facility] Last Admin: 11/20/20 21:05 Dose: 25 mls/hr Documented by: Levetiracetam (Levetiracetam Oral Soln 500 Mg/5 Ml Cup) 2,000 mg PEG/G-TUBE BID [facility] Last Admin: 11/20/20 21:05 Dose: 2,000 mg Documented by: Lorazepam (Lorazepam 2 Mg/Ml Inj) 1 mg IV Q4HR PRN PRN Reason: Seizures Last Admin: 11/19/20 05:24 Dose: 1 mg Documented by: Naloxone HCl (Naloxone 0.4 Mg/Ml 1 Ml Vial) 0.2 mg IV Q2M PRN PRN Reason: Opioid Reversal Phenobarbital (Phenobarbital 32.4 Mg Tab) 64.8 mg PEG/G-TUBE TID@0500,1300,2100 [facility] Last Admin: 11/20/20 21:05 Dose: 64.8 mg Documented by: Senna (Sennosides 8.6 Mg Tab) 17.2 mg PEG/G-TUBE HS [facility] Last Admin: 11/20/20 21:04 Dose: 17.2 mg Documented by: Topiramate (Topiramate 100 Mg Tab) 100 mg PEG/G-TUBE BID [facility] Last Admin: 11/20/20 21:04 Dose: 100 mg Documented by: Past medical history to include: Anoxic brain injury, hypertension, seizure disorder, GERD, MRSA infection, PEG tube for feeding, tracheostomy tube Social history: . Nonverbal. Currently at [facility] on. Tracheostomy tube PEG tube. Family history: Patient cannot tell Physical examination: VITAL SIGNS: 99.3, 86, 18, 133 with 73, 100% on trach collar GENERAL:, laying in bed. Lethargic. Eyes closed EYES: Pupils equal. Conjunctiva normal. HEENT: External appearance of nose and ears normal, oral cavity. Dry. NECK: JVD not raised; tracheostomy in place with some secretions. HEART: First and second heart sounds are normal; no edema. LUNGS: Respiratory rate increased, decreased breath sounds . ABDOMEN: Soft, nontender, liver spleen not palpable, no masses palpable. PSYCH: Unable to assessl. NEUROLOGICAL: Myoclonic jerks present intermittently.. INVESTIGATIONS, reviewed in the clinical context: November 19: WBC 7.2 hemoglobin 9.8 potassium 3.6 creatinine 0.46 November 17: Potassium 3.6 creatinine 0.5 for WBC 10.2 hemoglobin 11.1 platelets 253 potassium 3.8 creatinine 0.65 UA positive for leukoesterase, WBC Coronavirus, influenza type A, influenza type B: All not detected EKG tracing personally reviewed by me-no sinus rhythm Chest x-ray film personally reviewed by me-tracheostomy tube. No recent infiltrates Kyotvq-moue-ynumlxzg bacilli Assessment and plan: -Sepsis. X-rays clear. Acute tracheobronchitis and pneumonia-sputum positive for pseudomonas aeruginosa and beta hemolytic strep group C. Patient IV cefepime. -Chronic medical debility, with complete assistance -Acute UTI with cystitis,. Urine culture negative -Anoxic brain injury, following cardiac arrest on 09/29/2020. chronic follow clinically -Essential hypertension continue with amlodipine, Coreg, hydralazine -Myoclonic jerks with Seizure disorder continue with Keppra, Topamax, phenobarbital. Continues to have intermittent myoclonic jerking. Patient will benefit from a higher level of care. With continuous EEG monitoring. -Chronic tracheostomy and PEG tube , for feeding. Had a lengthy talk with the neurologist Dr. Sharma. Also with the nurse. Also communicated with the showcase maker. Our collective feeling was conveyed to the patient's and Dr. Sharma disputable has been drinking that patient be best served at a higher level of care. She did not been the best interest the patient to be sent back to [facility]. The we do understand oral prognosis is guarded. Continue current medications. Total time spent today about 45 minutes with over 25 minutes of discussion. I also spoke to the receiving physician at [facility]. Has beds were not available at [facility].
[2020-11-21] MEDS: IPRATROPIUM-ALBUTEROL 3 ML NEB INHALATION SCH ×4 (02:37→20:21)
[2020-11-21 04:03] LABS: ALT 31 U/L (8-44); AST 20 U/L (13-35)
[2020-11-21] MEDS: clonazePAM 0.5 MG TAB PEG/G-TUBE SCH ×3 (05:18→21:35)
[2020-11-21] MEDS: HEPARIN SODIUM,PORCINE 5,000 UNIT/ML 1 ML VIAL SQ SCH ×3 (05:18→21:40)
[2020-11-21] MEDS: ARTIFICIAL TEARS-HYPROMELLOSE DROPS 15 ML BTL BOTH EYES SCH ×2 (05:18→13:42)
[2020-11-21] MEDS: clonazePAM 1 MG TAB PEG/G-TUBE SCH ×3 (05:18→21:35)
[2020-11-21] MEDS: amLODIPine 10 MG TAB PEG/G-TUBE SCH ×3 (08:50→08:56)
[2020-11-21] MEDS: CEFEPIME 2 GM in SODIUM CHLORIDE 0.9% 100 ML IVPB SCH (08:53)
[2020-11-21] MEDS: TOPIRAMATE 100 MG TAB PEG/G-TUBE SCH ×2 (08:55→21:36)
[2020-11-21] MEDS: hydrALAZINE HCL 50 MG TAB PEG/G-TUBE SCH ×2 (08:55→21:36)
[2020-11-21] MEDS: FUROSEMIDE 20 MG TAB PEG/G-TUBE SCH (08:55)
[2020-11-21] MEDS: ACETAMINOPHEN TAB 325 MG TAB PEG/G-TUBE PRN (08:56)
[2020-11-21] MEDS: FAMOTIDINE 20 MG TAB PEG/G-TUBE SCH ×2 (08:56→21:35)
[2020-11-21] MEDS: carvediloL 12.5 MG TAB PEG/G-TUBE SCH ×2 (08:56→21:36)
[2020-11-21] MEDS: levETIRAcetam ORAL SOLN 500 MG/5 ML CUP PEG/G-TUBE SCH ×2 (08:57→21:36)
[2020-11-21] MEDS: DIVALPROEX SPRINKLE 125 MG CAP.SPRINK PO SCH (08:58)
[2020-11-21] MEDS ORDERED: DIVALPROEX SPRINKLE 125 MG CAP.SPRINK PO ONE (10:00)
--- NOTE | 2020-11-21 10:53 | P.PN ---
Subjective Progress Note Date: 11/21/20 She was seen at bedside and the I felt that the patient had a dramatic improvement upon seizure early in the morning compared to 4 days ago she had continuing the myoclonic jerks. Today I increased her Depakote from 500 mg 1 tablet twice a day to 750 mg 1 tablet twice a day. She is also on Klonopin 1.25 mg 3 times a day, phenobarbital 64.8 mg one 3 times a day and Keppra 2000 mg 1 tablet twice a day. On Ativan 1 mg every 4 hours as needed. Patient continues to be on T Garcia on FiO2 of 40% and the flow rate of 10. She had a T-max of 100.6 6:58AM today. Patient's AST is 20 and that ALTs 31. Yesterday the patient had a bed available at [facility] but the refused since it was too far out from his house. Today early in the morning I spoke with [facility] for Continous EEG monitor ing and they stated they had a bed available for patient but were told she is going to [facility] and will try to start the process again. Objective - Vital Signs Vital signs: Vital Signs Temp 100.6 F H 11/21/20 06:58 Pulse 92 11/21/20 07:38 Resp 20 11/21/20 06:58 BP 178/96 11/21/20 06:58 Pulse Ox 100 11/21/20 06:58 Intake & Output 11/20/20 11/21/20 11/21/20 18:59 06:59 18:59 Intake Total 0 Output Total 775 350 Balance -775 -350 0 Weight 85 kg 80.1 kg Intake: Oral 0 Output: Urine 775 350 Other: Voiding Method Indwelling Catheter Indwelling Catheter Indwelling Catheter - Exam Gen.: The patient is lying in bed. She is obese. She is in no acute distress. Resp: Trach collar on oxygen. Gastrointestinal: Has PEG tube. Neurological examination Mental status: The patient opened eyes to verbal stimuli. The patient is nonverbal. She follows no commands.There is no visual tracking. She does not opens eyes to painful stimuli. She has few intermittent myoclonic jerks of the face, shoulder and trunk (dramatically improved compared to 4 days ago). Cranial nerves: Pupils are equal at 5 mm and reactive. Primary gaze is midline. There is no obvious facial asymmetry. Motor: There is no volitional movement. There is no withdrawal from noxious stimulation. Sensation: There is no withdrawal from noxious stimulation. Reflexes 1+ throughout. - Labs CBC & Chem 7: 11/19/20 05:45 11/21/20 05:51 Labs: Abnormal Lab Results - Last 24 Hours (Table) 11/20/20 Range/Units 05:44 Creatinine 0.5 L (0.6-1.5) mg/dL C-Reactive Protein 19.4 H (0.0-0.8) mg/dL Microbiology - Last 24 Hours (Table) 11/20/20 05:44 Blood Culture - Preliminary Blood No Growth after 24 hours 11/15/20 18:50 Blood Culture - Preliminary Blood No Growth after 120 hours 11/15/20 18:50 Blood Culture - Preliminary Blood No Growth after 120 hours 11/16/20 11:24 Blood Culture - Preliminary Blood No Growth after 96 hours 11/16/20 11:44 Blood Culture - Preliminary Blood No Growth after 96 hours Assessment and Plan Assessment: 1. Myoclonic status to cerebral anoxia (09/29/20), perhaps exacerbated by current infection and per has been having myoclonic jerks since 09/29/2020--clinically dramatically better compared to four days ago but continues to have intermittent jerks 2. Based on the fact the patient is already receiving 4 antiepileptic medications, it is likely that she has had myoclonic seizures previously 3. History of severe anoxic brain injury due to cardiac arrest back in 09/29/2020 4. 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 History of cardiac arrest 6. Acute tracheobronchitis Plan: I increased Depakote 750mg 1 tab bid to 1000mg 1 tab bid, Klonopin 1.25 mg 3 times a day, phenobarbital 64.8 mg one 3 times a day and Keppra 2000 mg 1 tablet twice a day. On Ativan 1 mg every 4 hours as needed. Pending patient to be transferred for continuos EEG monitoring (pending bed at [facility]). UPDATE: From a neurological stand point the myoclonic jerks are drastically improved today compared to 4 days ago. Even if the myoclonic jerks resolve, from a neurological stand point she does nothing (does not verbalized or follow command and is dependent on Trach collar for breathing and PEG for feeding). Patient's prognosis is poor. I had multiple discussions with the patient's husb and at about her condition and he is not in agreement. She is clear for discharge from a neurological stand point to a nursing facility. The plan was discussed with the patient's primary team, nurse and the field nurse case manager. German Sharma MD Neuro-Hospitalist Time with Patient: Greater than 30
[2020-11-21 12:31] LABS: African American GFR (CKD) 138.8 (60.0-200.0); Non-African American GFR(CKD) 119.8 (60.0-200.0)
[2020-11-21] MEDS ORDERED: LIDOCAINE 1% INJ 10MG/ML (20 ML MDV) ONE (14:12)
[2020-11-21] MEDS: LIDOCAINE 1% INJ 10MG/ML (20 ML MDV) SQ ONE ×2 (14:16→14:28)
[2020-11-21] MEDS: SODIUM CHLORIDE 0.9% 1,000 ML IV SCH (14:21)
[2020-11-21] MEDS ORDERED: IOPAMIDOL-250 50ML BTL IV ONE (14:35)
[2020-11-21] MEDS: IOPAMIDOL-250 50ML BTL IV ONE ×2 (14:35→14:39)
--- NOTE | 2020-11-21 14:52 | IR ---
PICC LINE PLACEMENT: HISTORY: Infection requiring long-term antibiotic therapy PROCEDURE: Ultrasound and fluoroscopic guidance of PICC line placement. COMPLICATIONS: None ANESTHESIA: 1. 1% Lidocaine locally. FINDINGS/TECHNIQUE: The procedure was explained to the patient. The risks, complications, benefits and alternatives were discussed and any questions were answered. Informed consent was obtained. The patient was placed supine on the fluoroscopic table and prepped and draped in the usual sterile fash ion. Utilizing a 21 gauge needle and sonographic and fluoroscopic guidance, access in the right bas ilic vein was achieved and there is placement of a 0.018 guidewire. The vein is patent. A 4-F sheat h was placed over the guidewire. The guidewire and dilator were removed and a 4-F. PICC line was micheline romie through the sheath with the tip at the level of the SVC. The sheath was removed, the catheter wa s flushed and sutured into position. The patient was stable throughout the procedure and remained st able upon discharge from the Department of Radiology. The vein puncture was patent under ultrasound. A lin scale image was obtained to document patency of the vein punctured. All elements of the maximal barrier technique were utilized. FLUOROSCOPY TIME: 1.5 minutes and one images submitted IMPRESSION: Successful PICC line placement under ultrasound and fluoroscopic guidance.
--- NOTE | 2020-11-21 16:37 | P.PN ---
Subjective Progress Note Date: 11/21/20 Principal diagnosis: Acute on chronic respiratory failure secondary to healthcare acquired pneumonia This is a 50-year-old female, -[place] female, presented to the emerge ncy room yesterday from [facility]. Patient was brought in mostly because of increased shortness of breath, fever, and excessive tracheal secretions noted from her tracheostomy. Chest x-ray showed no evidence of pneumonia, patient had history of multiple types of infections including MRSA infections, and I was asked to see her on consultation. Apparently the patient had history of cardiac arrest back on September 29 2020, and she presented at the time to [facility] unresponsive, CPR was initiated, received multiple rounds of CPR and 2 doses of epinephrine. Patient eventually developed severe anoxic brain injury. Patient was treated with the hypothermia protocol. And she was on mechanical ventilation for quite some time. Patient was eventually a failure to wean, and underwent tracheostomy and PEG tube placement. Eventually she was transferred to [facility] on multiple medications including seizure medications, yesterday, the patient was noted to have significant secretions from her tracheostomy, and she was constantly coughing and requiring suctioning, she was also noted to have low-grade fever, chest x-ray showed no evidence of infiltrate. Patient was admitted and this consult was initiated. No information could be obtained from the patient and no family members around. Information was obtained from records from the [facility] facility where the patient was Progress note dated 11/17/2020. This is a 50-year-old black female, presented to the emergency department, from a [facility]. She apparently came in was brought in because of increasing shortness of breath, fever, and excessive tracheal secretions noted from her tracheostomy site. Chest x-ray showed no evidence of pneumonia, and the patient was admitted with a diagnosis of tracheobronchitis. 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 She has a prior history of cardiac arrest back on 09/29/2020. She apparently presented to [facility] at that time and she was unresponsive. The patient was started on CPR, and received multiple rounds of CPR and medications, and was thought to have developed severe anoxic brain injury. She did undergo the hypothermia protocol there, and was on mechanical ventilation for some time, status post tracheostomy and PEG tube placement, eventual [facility] [place]. Currently, the patient is unresponsive. Sodium is 138, potassium 3.6, chlorides 109, CO2 20, anion gap 9, BUN 15, and creatinine 0.54. The urinalysis from November 16 is consistent with a urinary tract infection. Microbiology is currently pending or negative including blood urine and sputum sampling. Progress note dated 11/20/2020. 50-year-old black female, with a history of anoxic brain injury. She initially presented to [facility] with cardiac arrest. That was back on 09/29/2020. She received CPR, multiple rounds of cardiopulmonary resuscitation, and controlled hypothermia. Unfortunately, she sustained significant anoxic brain injury, and underwent a tracheostomy and PEG tube placement. She was recently transferred from a [facility], the [facility]. Sputum samples from November 16 and November 17 show evidence of pseudomonas aeruginosa. She will likely need IV antibiotics for a period of time. She is currently on cefepime, and will need a midline/PICC line. She is awaiting discharge. No bed is available as yet. Her most recent C-reactive protein is 19.4, with a pro-calcitonin level 0.07. She is unresponsive as she has been the last number of days. The patient is seen today 11/21/2020 in follow-up on the regular medical floor. She continues to maintain O2 saturations in the 90s on the T-Piece 40% FiO2. Sputum culture is positive for pseudomonas aeruginosa, beta hemolytic strep group C. She remains on cefepime. Creatinine 0.4. She remains on Depakote, Keppra, phenobarbital. Objective - Vital Signs Vital signs: Vital Signs Temp 99 F 11/21/20 12:22 Pulse 88 11/21/20 12:22 Resp 20 11/21/20 12:22 BP 165/79 11/21/20 12:09 Pulse Ox 100 11/21/20 12:22 Intake & Output 11/20/20 11/21/20 11/21/20 18:59 06:59 18:59 Intake Total 0 Output Total 775 350 350 Balance -775 -350 -350 Weight 85 kg 80.1 kg Intake: Oral 0 Output: Urine 775 350 350 Other: Voiding Method Indwelling Catheter Indwelling Catheter Indwelling Catheter - Exam No acute distress, unresponsive. The patient has a midline tracheostomy. She has a 40% T piece HEENT examination is grossly unremarkable. Mucous membranes are dry. Neck supple. Full range of motion. No adenopathy thyromegaly or neck vein distention. Midline tracheostomy is noted. Cardiovascular examination reveals regular rhythm rate. S1-S2 normal. No S3 or S4. No discernible murmur noted. Heart sounds are distant. Heart rate 86 bpm. Lungs reveal coarse bilateral rhonchi. Breath sounds equal. No wheezes or crackles. Lung exam is unchanged. Abdomen soft bowel sounds are heard. No masses or tenderness. PEG tube noted. Extremities are intact. No cyanosis clubbing or edema. Skin is without rash or lesion. Neurologic examination reveals a patient who is unresponsive secondary to anoxic brain injury. - Labs CBC & Chem 7: 11/19/20 05:45 11/21/20 05:51 Labs: Abnormal Lab Results - Last 24 Hours (Table) 11/21/20 Range/Units 05:51 Creatinine 0.4 L (0.6-1.5) mg/dL Microbiology - Last 24 Hours (Table) 11/16/20 11:44 Blood Culture - Final Blood 11/16/20 11:24 Blood Culture - Preliminary Blood No Growth after 120 hours 11/20/20 05:44 Blood Culture - Preliminary Blood No Growth after 24 hours 11/15/20 18:50 Blood Culture - Preliminary Blood No Growth after 120 hours 11/15/20 18:50 Blood Culture - Preliminary Blood No Growth after 120 hours Assessment and Plan Assessment: 1 Acute tracheobronchitis, complicated by pseudomonas aeruginosa. 2 History of severe anoxic brain injury secondary to cardiac arrest, back on 09/29/2020. 3 Pseudomonas aeruginosa tracheobronchitis/bronchopneumonia. 4 History of seizure disorder, secondary to anoxic brain injury. 5 Possible myoclonic jerks or seizure activity, to be seen by neurology. 6 History of cardiac arrest. 7 History of benign essential hypertension. 8 Status post PEG tube placement for nutritional support. 9 Status post tracheostomy tube placement for failure to wean from mechanical ventilation. Plan: The patient was seen and evaluated by Dr. Sharma Continue cefepime and bronchodilators Awaiting transfer for 24-hour EEG monitoring I, the cosigning physician, performed a history & physical examination of the patient. Lungs sounds with bilateral coarse rhonchi. Maintaining good O2 saturations in the 90s on 40% FiO2 via trach/T-Piece. I discussed the assessment and plan of care with my nurse practitioner, Dorina John. I attest to the above note as dictated by her.
--- NOTE | 2020-11-21 18:14 | PN ---
PROGRESS NOTE DATE OF SERVICE: 11/21/2020 REASON FOR FOLLOWUP: Pseudomonas pneumonia. INTERVAL HISTORY: The patient did have a low-grade fever of 100.6 today. The patient is hemodynamically stable, though. FiO2 is currently stable, now on trach collar. No vomiting, diarrhea with any other changes reported by nursing staff. PHYSICAL EXAMINATION: Blood pressure 165/79, pulse of 88, temperature 99. She is 100% on trach collar. General description is a middle-aged female lying in bed in no distress. RESPIRATORY SYSTEM: Unlabored breathing with decreased intensity of breath sounds. No wheeze. HEART: S1, S2. Regular rate and rhythm. ABDOMEN: Soft. No tenderness. LABS: Hemoglobin is 9.2, white count 7.2, BUN of 9, creatinine 0.46. DIAGNOSTIC IMPRESSION AND PLAN: Patient admitted to hospital with a fever, concern for urinary tract infection plus/minus pneumonia. Still running a low-grade fever. Culture has been positive for pseudomonas and streptococcus, for which the patient is currently covered with cefepime; to continue and monitor clinical course closely. Continue supportive care. MMODL / IJN: [id number] /
[2020-11-21] MEDS ORDERED: DIVALPROEX SPRINKLE 125 MG CAP.SPRINK PO SCH (21:00)
[2020-11-21] MEDS: SENNOSIDES 8.6 MG TAB PEG/G-TUBE SCH (21:36)
--- NOTE | 2020-11-21 21:43 | P.PN ---
Progress Note - Text Progress Note Date: 11/21/20 Chief Complaint: Fever History of presenting complaint: This is a 50-year-old patient, who is a resident of [facility] being followed by Dr. Packer. Patient herself is nonverbal. History from the transfer notes and per the nurses obtained. patient had a cardiac arrest and was transferred to [facility]. From there she was [facility] and from there she was transferred to [facility]. Patient has a tracheostomy tube and a PEG tube. Chronic stable medical conditions include anoxic brain injury, hypertension, seizure disorder, GERD. History of MRSA. Maybe at her baseline she opens her eyes. EMS was called out as patient was noted to have a fever. Transferred to the hospital. Patient normally has a trach: Collar at 21%. Patient also noted to have some jerking movements. More so off the abdomen. Some around the mouth. She was seen initially by neurologist Dr. Herring. Patient felt to have myoclonic jerks. Phenytoin was added after getting a bolus. Patient is requiring frequent Ativan. As myoclonic jerks persist. Had a lengthy discussion with Dr. Sharma from neurology. Given that patient is on multiple medication not responding. Patient will benefit from continuous EEG monitoring system , requiring higher level of care. [facility] hospitalist has accepted the patient. Today-laying in bed. Unchanged. Getting 2 feeding. Review of systems: Patient is not verbal Past medical history to include: Anoxic brain injury, hypertension, seizure disorder, GERD, MRSA infection, PEG tube for feeding, tracheostomy tube Social history: . Nonverbal. Currently at [facility]. Tracheostomy tube PEG tube. Family history: Patient cannot tell Physical examination: VITAL SIGNS: 99, 88, 20, 165/79, 100% trach shield GENERAL:, laying in bed. Lethargic. Eyes closed EYES: Pupils equal. Conjunctiva normal. HEENT: External appearance of nose and ears normal, oral cavity. Dry. NECK: JVD not raised; tracheostomy in place with some secretions. HEART: First and second heart sounds are normal; no edema. LUNGS: Respiratory rate increased, decreased breath sounds . ABDOMEN: Soft, nontender, liver spleen not palpable, no masses palpable. PSYCH: Unable to assessl. NEUROLOGICAL: Myoclonic jerks occasionally reported.. INVESTIGATIONS, reviewed in the clinical context: November 19: WBC 7.2 hemoglobin 9.8 potassium 3.6 creatinine 0.46 November 17: Potassium 3.6 creatinine 0.5 for WBC 10.2 hemoglobin 11.1 platelets 253 potassium 3.8 creatinine 0.65 UA positive for leukoesterase, WBC Coronavirus, influenza type A, influenza type B: All not detected EKG tracing personally reviewed by me-no sinus rhythm Chest x-ray film personally reviewed by me-tracheostomy tube. No recent infiltrates Sputum-pseudomonas aeruginosa, beta hemolytic strep group C Assessment and plan: -Sepsis. X-rays clear. Acute tracheobronchitis and pneumonia-sputum positive for pseudomonas aeruginosa and beta hemolytic strep group C. 2020 IV cefepime. -Chronic medical debility, with complete assistance -Acute UTI with cystitis,. Urine culture negative -Anoxic brain injury, following cardiac arrest on 09/29/2020. chronic follow clinically -Essential hypertension continue with amlodipine, Coreg, hydralazine -Myoclonic jerks with Seizure disorder continue with Keppra, Topamax, phenobarbital. Continues to have intermittent myoclonic jerking. Patient will benefit from a higher level of care. With continuous EEG monitoring. Today's evaluation by neurology. The patient may be stable to go back to the ECF. As myoclonic jerks have come down -Chronic tracheostomy and PEG tube , for feeding. We will watch the patient follow 24 hours if no worsening, then DC the ECF tomorrow
[2020-11-21 22:08] VITALS: BP 180/94; PULSE 85; TEMP 99.1
[2020-11-22] MEDS: CEFEPIME 2 GM in SODIUM CHLORIDE 0.9% 100 ML IVPB SCH (00:22)
[2020-11-22] MEDS: BACITRACIN ZINC 500 UNIT/GM OINT 28.4 GM TUBE TOPICAL SCH (00:22)
[2020-11-22] MEDS: ARTIFICIAL TEARS-HYPROMELLOSE DROPS 15 ML BTL BOTH EYES SCH (00:22)
[2020-11-22 00:55] VITALS: RESP 20
--- NOTE | 2020-11-22 23:15 | P.DS ---
Providers Date of admission: 11/17/20 11:19 Expected date of discharge: 11/21/20 Attending physician: Flavio Acharya Consults: 11/15/20 22:38 Consult Physician Routine Consulting Provider: Joseline De La Garza Consult Reason/Comments: Trach, increased secretions, clear CXR Do you want consulting provider notified?: Yes 11/16/20 10:48 Consult Physician Routine Consulting Provider: Dayan Alexandre Consult Reason/Comments: anoxic brain injury Do you want consulting provider notified?: Yes 11/16/20 10:51 Consult Physician Routine Consulting Provider: Sharonda Rowland Consult Reason/Comments: mrsa infection Do you want consulting provider notified?: Yes Primary care physician: [facility] Course: Chief Complaint: Fever History of presenting complaint: This is a 50-year-old patient, who is a resident of [facility] being followed by Dr. Packer. Patient herself is nonverbal. History from the transfer notes and per the nurses obtained. patient had a cardiac arrest and was transferred to [facility]. From there [facility] and from there she was transferred to [facility] on. Patient has a tracheostomy tube and a PEG tube. Chronic stable medical conditions include anoxic brain injury, hypertension, seizure disorder, GERD. History of MRSA. Maybe at her baseline she opens her eyes. EMS was called out as patient was noted to have a fever. Transferred to the hospital. Patient normally has a trach: Collar at 21%. Patient also noted to have some jerking movements. More so off the abdomen. Some around the mouth. She was seen initially by neurologist Dr. Herring. Patient felt to have myoclonic jerks. Phenytoin was added after getting a bolus. Patient is requiri ng frequent Ativan. As myoclonic jerks persist. Had a lengthy discussion with Dr. Sharma from neurology. Given that patient is on multiple medication not responding. Patient will benefit from continuous EEG monitoring system , requiring higher level of care. [facility] hospitalist has accepted the patient. Today-myoclonic jerks started to come down. Apparently patient did get of bed at [facility] late in the day. and patient was transferred there. Consultation: Dr. De La Garza from pulmonary Dr. Spring from neurology Dr. Sayed from ID Past medical history to include: Anoxic brain injury, hypertension, seizure disorder, GERD, MRSA infection, PEG tube for feeding, tracheostomy tube Social history: . Nonverbal. Currently [facility]. Tracheostomy tube PEG tube. Family history: Patient cannot tell Physical examination: VITAL SIGNS: 99.1, 85, 21, 165/79 GENERAL:, laying in bed. Lethargic. Eyes closed EYES: Pupils equal. Conjunctiva normal. HEENT: External appearance of nose and ears normal, oral cavity. Dry. NECK: JVD not raised; tracheostomy in place with some secretions. HEART: First and second heart sounds are normal; no edema. LUNGS: Respiratory rate increased, decreased breath sounds . ABDOMEN: Soft, nontender, liver spleen not palpable, no masses palpable. PSYCH: Unable to assessl. NEUROLOGICAL: Myoclonic jerks present intermittently.. INVESTIGATIONS, reviewed in the clinical context: November 19: WBC 7.2 hemoglobin 9.8 potassium 3.6 creatinine 0.46 November 17: Potassium 3.6 creatinine 0.5 for WBC 10.2 hemoglobin 11.1 platelets 253 potassium 3.8 creatinine 0.65 UA positive for leukoesterase, WBC Coronavirus, influenza type A, influenza type B: All not detected EKG tracing personally reviewed by me-no sinus rhythm Chest x-ray film personally reviewed by me-tracheostomy tube. No recent infiltrates Rubqxm-dogr-yqkpuvor bacilli Assessment and plan: -Sepsis. X-rays clear. Acute tracheobronchitis and pneumonia-sputum positive for pseudomonas aeruginosa and beta hemolytic strep group C. Patient IV cefepime. -Chronic medical debility, with complete assistance -Acute UTI with cystitis,. Urine culture negative -Anoxic brain injury, following cardiac arrest on 09/29/2020. chronic follow clinically -Essential hypertension continue with amlodipine, Coreg, hydralazine -Myoclonic jerks with Seizure disorder continue with Keppra, Topamax, phenobarbital. Continues to have intermittent myoclonic jerking. Patient will benefit from a higher level of care. With continuous EEG monitoring. -Chronic tracheostomy and PEG tube , for feeding. Disposition: [facility]. Transferred for higher level of care Patient Condition at Discharge: Stable Plan - Discharge Summary Discharge Rx Participant: No New Discharge Prescriptions: New Cefepime [Maxipime] 2 gm IVPB Q12HR vial Vancomycin 1,750 mg IVPB Q12H vial Continue bisacodyL [Bisacodyl] 10 mg RECTAL DAILY PRN PRN Reason: Constipation Acetaminophen [Tylenol] 650 mg PEG/G-TUBE Q6H PRN PRN Reason: Pain Ipratropium-Albuterol Nebulize [Duoneb 0.5 mg-3 mg/3 ml Soln] 3 ml INHALATION RT-Q6H Refresh Plus Solution 0.5% 2 drop BOTH EYES TID@0500,1300,2100 PHENobarbitaL [PHENobarbital] 64.8 mg PEG/G-TUBE TID@0500,1300,2100 Heparin Sodium,Porcine [Heparin Sodium] 5,000 unit SQ TID@0500,1300,2100 clonazePAM [KlonoPIN] 1 mg PEG/G-TUBE TID@0500,1300,2100 Topiramate [Topamax] 100 mg PEG/G-TUBE BID levETIRAcetam [levETIRAcetam Oral Soln] 1,500 mg PEG/G-TUBE BID hydrALAZINE HCL [Apresoline] 50 mg PEG/G-TUBE BID Famotidine 20 mg PEG/G-TUBE BID Carvedilol [Coreg] 12.5 mg PEG/G-TUBE BID Sennosides [Senna] 17.2 mg PEG/G-TUBE HS Furosemide [Lasix] 20 mg PEG/G-TUBE DAILY amLODIPine [Norvasc] 10 mg PEG/G-TUBE DAILY Pro-Stat 15 ml PEG/G-TUBE BID Bacitracin Ointment 500 Unit/Gm 1 applic TOPICAL HS Discontinued Docusate [Colace] 100 mg PEG/G-TUBE BID Levofloxacin [Levaquin] 500 mg PEG/G-TUBE DAILY Discharge Medication List Acetaminophen [Tylenol] 650 mg PEG/G-TUBE Q6H PRN 11/15/20 [History] Bacitracin Ointment 500 Unit/Gm 1 applic TOPICAL HS 11/15/20 [History] Carvedilol [Coreg] 12.5 mg PEG/G-TUBE BID 11/15/20 [History] Famotidine 20 mg PEG/G-TUBE BID 11/15/20 [History] Furosemide [Lasix] 20 mg PEG/G-TUBE DAILY 11/15/20 [History] Heparin Sodium,Porcine [Heparin Sodium] 5,000 unit SQ TID@0500,1300,2100 11/15 [History] Ipratropium-Albuterol Nebulize [Duoneb 0.5 mg-3 mg/3 ml Soln] 3 ml INHALATION RT-Q6H 11/15/20 [History] PHENobarbitaL [PHENobarbital] 64.8 mg PEG/G-TUBE TID@0500,1300,2100 11/15/20 [History] Pro-Stat 15 ml PEG/G-TUBE BID 11/15/20 [History] Refresh Plus Solution 0.5% 2 drop BOTH EYES TID@0500,1300,2100 11/15/20 [History] Sennosides [Senna] 17.2 mg PEG/G-TUBE HS 11/15/20 [History] Topiramate [Topamax] 100 mg PEG/G-TUBE BID 11/15/20 [History] amLODIPine [Norvasc] 10 mg PEG/G-TUBE DAILY 11/15/20 [History] bisacodyL [Bisacodyl] 10 mg RECTAL DAILY PRN 11/15/20 [History] clonazePAM [KlonoPIN] 1 mg PEG/G-TUBE TID@0500,1300,2100 11/15/20 [History] hydrALAZINE HCL [Apresoline] 50 mg PEG/G-TUBE BID 11/15/20 [History] levETIRAcetam [levETIRAcetam Oral Soln] 1,500 mg PEG/G-TUBE BID 11/15/20 [History] Cefepime [Maxipime] 2 gm IVPB Q12HR vial 11/18/20 [Rx] Vancomycin 1,750 mg IVPB Q12H vial 11/18/20 [Rx] Follow up Appointment(s)/Referral(s): Lacho Packer DO [Primary Care Provider] - As Needed Discharge Disposition: OTHER INSTITUTION NOT DEFINED
== END 2020-11-21 21:30 | disposition short-term general hospital (02) | DRG 871 ==
LOC: EC 18:13 → 4SSUR 22:37 → OBSVTOIN 11-17 11:19 → 4SSUR 11-18 23:05
PROVIDERS: ADMIT Hospitalist; ATTEND Hospitalist
PROC: 3E0G76Z Introduction of Nutritional Substance into Upper GI, Via Natural or Artificial Opening (ICD-10-PCS; 2020-11-16)
PROC: 5A1945Z Respiratory Ventilation, 24-96 Consecutive Hours (ICD-10-PCS; principal; 2020-11-17)
PROC: 02HV33Z Insertion of Infusion Device into Superior Vena Cava, Percutaneous Approach (ICD-10-PCS; 2020-11-21)
DX: A41.52 Sepsis due to Pseudomonas (principal); I46.9 Cardiac arrest, cause unspecified; J15.1 Pneumonia due to Pseudomonas; J15.6 Pneumonia due to other Gram-negative bacteria; J96.20 Acute and chronic respiratory failure, unspecified whether with hypoxia or hypercapnia; G93.1 Anoxic brain damage, not elsewhere classified; R65.20 Severe sepsis without septic shock; G40.909 Epilepsy, unspecified, not intractable, without status epilepticus; I11.0 Hypertensive heart disease with heart failure; I50.9 Heart failure, unspecified; Z20.822 Contact with and (suspected) exposure to COVID-19; J20.9 Acute bronchitis, unspecified; K21.9 Gastro-esophageal reflux disease without esophagitis; N30.90 Cystitis, unspecified without hematuria; T17.998A Other foreign object in respiratory tract, part unspecified causing other injury, initial encounter; Y95 Nosocomial condition; Z79.2 Long term (current) use of antibiotics; Z79.899 Other long term (current) drug therapy; Z86.14 Personal history of Methicillin resistant Staphylococcus aureus infection; Z93.0 Tracheostomy status; Z93.1 Gastrostomy status; R25.3 Fasciculation
CPT/HCPCS: 36415; 36573; 71045; 80048; 80053; 80202; 81001; 81003; 82565; 83605; 84145; 84450; 84460; 85025; 85610; 85730; 86140; 87040; 87070; 87077; 87086; 87186; 87205; 87502; 87635; 93005; 94640; 94760; 95816; 96360; 96361; 99285